=== PATIENT | male | born 1935 | race Caucasian/White ===

== ENCOUNTER 2016-08-10 16:05 | Outpatient (CLI) ==
[2016-03-12 20:23] VITALS: BMI 26.6
[2016-08-10 16:59] LABS: ADD URINE MICROSCOPIC YES; BILIRUBIN,URINE Negative (NEGATIVE); KETONES,URINE Negative (NEGATIVE); LEUKOCYTE ESTERASE ,URINE Negative (NEGATIVE); NITRITE,URINE Negative (NEGATIVE); PROTEIN,URINE Negative (NEGATIVE); URINE, BLOOD 1+ (NEGATIVE)
[2016-08-10 17:03] LABS: BASOPHILS % (AUTO) 0.4 % (0.0-3.0); EOSINOPHILS % (AUTO) 0.4 % (0.0-7.0); HEMATOCRIT 42.3 % (42.0-52.0); HEMOGLOBIN 14.4 g/dl (14.0-18.0); IMMATURE GRANULOCYTE % (AUTO) 0.4 % (0.0-5.0); LYMPHOCYTES # (AUTO) 2.2 K/uL (0.60-3.4); LYMPHOCYTES % (AUTO) 28.3 (10.0-50.0); MEAN CORPUSCULAR HEMOGLOBIN 31.6 pg (27.0-31.0); MONOCYTES # (AUTO) 0.6 K/uL (0.4-2.0); MONOCYTES % (AUTO) 7.6 (0-10); NEUTROPHILS # (AUTO) 4.9 K/ul (2.0-6.9); NEUTROPHILS % (AUTO) 62.9; PLATELET COUNT 198 10^3/uL (140-440); RED BLOOD COUNT 4.55 10^6/ul (4.70-6.10); WHITE BLOOD COUNT 7.78 K/ul (4.2-10.2)
[2016-08-10 17:20] LABS: ALBUMIN 3.9 g/dL (3.4-5.0); ALBUMIN/GLOBULIN RATIO 1.22; ANION GAP 15.8; BILIRUBIN,TOTAL 0.77 mg/dL (0.00-1.20); BUN/CREATININE RATIO 13.51; CALCIUM 10.5 mg/dL (8.2-10.2); CHOL/HDL RATIO 5.1 (4.5-6.4); CREATININE 1.11 mg/dL (0.60-1.10); POTASSIUM 3.8 mmol/L (3.5-5.1); TOTAL PROTEIN 7.1 g/dL (5.8-8.1)
[2016-08-15 08:27] LABS: FREE TESTOSTERONE 4.7 pg/mL (6.6-18.1)
== END 2016-08-10 16:06 | disposition home or self-care (01) ==
LOC: LAB 16:05
PROVIDERS: ATTEND General Practice
DX: R53.83 Other fatigue (principal); I10 Essential (primary) hypertension; R35.0 Frequency of micturition; E78.5 Hyperlipidemia, unspecified; Z12.5 Encounter for screening for malignant neoplasm of prostate
CPT/HCPCS: 36415; 80053; 80061; 81001; 84402; 85025

== ENCOUNTER 2016-11-28 16:47 | Inpatient (IN) ==
--- NOTE | 2016-11-28 17:17 | ED.PDOC ---
General ED Provider: Dr. TETE WALKER JR Chief Complaint: Dizziness Stated Complaint: patient states he quit taking his medication for 2 months and has been dizzy since. states he didn't think it was helping so he just stopped taking it. states he will take it starting tonight. [ End ]DIZZINESS FOR 2 MONTHS 99.0 65 16 97% 200/111 135#patient states he occassionally has dizziness since stopping all of his medications 2 months ago.[ End ] Time Seen by Physician: 17:17 Mode of Arrival: Walk-In Information Source: Patient Exam Limitations: No limitations [facility] T[facility] Documentation Reviewed and Agree: No Review of Systems - Review Of Systems Constitutional: Reports: Malaise Eyes: Reports: No symptoms Ears, Nose, Mouth, Throat: Reports: No symptoms Respiratory: Reports: No symptoms Cardiac: Reports: Lightheadedness (DIZZINESS DESCRIBED LIGHTHEADEDNESS UPON ARISING OCCASIONALLY SAME SENSATION WHEN NOTCHANGING POSITION) GI: Reports: No symptoms : Reports: No symptoms Musculoskeletal: Reports: No symptoms Skin: Reports: No symptoms Neurological: Reports: No symptoms Endocrine: Reports: No symptoms Hematologic/Lymphatic: Reports: No symptoms All Other Systems: Other Past Medical History - Past Medical History Endocrine: Reports: None Cardiovascular: Reports: Hypertension, A-Fib Respiratory: Reports: None Hematological: Reports: None Gastrointestinal: Reports: None Genitourinary: Reports: None Neuro/Psych: Reports: None Musculoskeletal: Reports: Arthritis Cancer: Reports: None Other Pertinent Past Medical History: GALLBLADDER HTN IRREG HB; NAMENDA LISINOPRIL AMLODIPINE - Surgical History General Surgical History: Reports: Cholecystectomy - Family History Family History: Reports: None - Social History Smoking Status: Never smoker Hx Substance Use: No Alcohol Screening: None Physical Exam - Physical Exam Appearance: Well-appearing, Thin Eyes: OSBALDO (LEFT LID DROOP FACE OTHERWISE INTACT TO TESTING), EOMI, Conjunctiva clear ENT: Ears normal, Nose normal, Oropharynx normal Neck: Supple Respiratory: Airway patent, Breath sounds clear, Breath sounds equal, Respirations nonlabored Cardiovascular: RRR, Pulses normal, No rub, No murmur GI/: Soft, Nontender, No masses, Bowel sounds normal, No Organomegaly Musculoskeletal: Normal strength, ROM intact, No edema, No calf tenderness Skin: Warm, Dry, Normal color Neurological: Sensation intact, Motor intact, Reflexes intact, Cranial nerves intact, Alert, Oriented Psychiatric: Affect appropriate, Mood appropriate Critical Care Note - Critical Care Note Total Time (mins): 0 Course - Course Orders, Labs, Meds: Orders Category Date Time Status Clonidine HCl [Catapres] MEDS 11/28/16 18:41 Stat 0.2 mg PO ONCE STA Lisinopril [Zestril] MEDS 11/28/16 17:20 Discontinued 40 mg PO ONCE STA Medications Discontinued Medications Generic Name Dose Route Start Last Admin Trade Name Dutch PRN Reason Stop Dose Admin Clonidine 0.2 mg 11/28/16 18:41 Catapres PO 11/28/16 18:42 ONCE STA Lisinopril 40 mg 11/28/16 17:20 11/28/16 17:41 Zestril PO 11/28/16 17:21 40 mg ONCE STA Administration Vital Signs: Temp Pulse Resp BP Pulse Ox 11/28/16 16:48 99.0 F 65 16 200/111 H 97 Departure - Departure Time of Disposition: 17:23 Disposition: HOME SELF-CARE Discharge Problem: Lightheadedness Hypertension Qualifiers: Hypertension type: essential hypertension Qualifier Code: (I10) Essential ( primary) hypertension Instructions: Chronic Hypertension (ED), Lightheadedness (ED) Condition: Good Pt referred to PMD for follow-up: Yes Additional Instructions: RECOMMEND TAKE MEDICATIONS PRESCRIBED stop amlodipine and use clonidine instead check blood pressure daily and write it down FOLLOW UP WITH PMD IN ONE WEEK, SOONER IF NOT IMPROVED RETURN IF CHEST PAIN, IF FEVER OVER 101.0; OR WEAKNESS ON ONE SIDE SLURRED SPEECH OR WORSENING Prescriptions: Clonidine HCl 0.1 mg PO DAILY #30 tablet Allergies/Adverse Reactions: Allergies No Known Allergies Allergy (Verified 11/28/16 16:53) Home Medications: Ambulatory Orders Clonidine HCl 0.1 mg PO DAILY #30 tablet 11/28/16 Disposition Discussed With: Patient, Family Addendum entered and electronically signed by TETE WALKER JR, MD 11/28/16 19:36: continued hypertensive discussed with Dr Shanks will recheck Addendum entered and electronically signed by ANTHONY SHANKS MD 11/28/16 21:34: Patient's blood pressure dropped to 108 systolic which was significantly lower than when he came in, Denies any dizziness at this time Per brother he has had multiple falls and gets confused due to Memory loss. Discussed with Dr Lennon who recommended CT head for completion of work up.
[2016-11-28] MEDS ORDERED: ZESTRIL PO STA (17:20)
[2016-11-28] MEDS ORDERED: CATAPRES PO STA (18:41)
[2016-11-28] MEDS ORDERED: SODIUM CHLORIDE 500 ML IV STA (20:23)
[2016-11-28 20:29] LABS: BASOPHILS % (AUTO) 0.4 % (0.0-3.0); EOSINOPHILS # (AUTO) 0.1 K/ul (0.0-0.7); EOSINOPHILS % (AUTO) 0.8 % (0.0-7.0); HEMATOCRIT 38.9 % (42.0-52.0); HEMOGLOBIN 13.3 g/dl (14.0-18.0); IMMATURE GRANULOCYTE % (AUTO) 0.1 % (0.0-5.0); LYMPHOCYTES # (AUTO) 2.1 K/uL (0.60-3.4); LYMPHOCYTES % (AUTO) 28.6 (10.0-50.0); MEAN CORPUSCULAR HEMOGLOBIN 30.6 pg (27.0-31.0); MEAN CORPUSCULAR HGB CONC 34.2 (31.8-35.4); MEAN CORPUSCULAR VOLUME 89.6 fl (80.0-94.0); MONOCYTES # (AUTO) 0.6 K/uL (0.4-2.0); MONOCYTES % (AUTO) 7.6 (0-10); NEUTROPHILS # (AUTO) 4.7 K/ul (2.0-6.9); NEUTROPHILS % (AUTO) 62.5; PLATELET COUNT 169 10^3/uL (140-440); RED BLOOD COUNT 4.34 10^6/ul (4.70-6.10); WHITE BLOOD COUNT 7.46 K/ul (4.2-10.2)
[2016-11-28 21:21] LABS: ALBUMIN 3.6 g/dL (3.4-5.0); ALBUMIN/GLOBULIN RATIO 1.38; ANION GAP 10.8; BILIRUBIN,TOTAL 0.81 mg/dL (0.00-1.20); BUN/CREATININE RATIO 16.12; CALCIUM 8.9 mg/dL (8.2-10.2); CREATININE 0.93 mg/dL (0.60-1.10); POTASSIUM 3.8 mmol/L (3.5-5.1); TOTAL PROTEIN 6.2 g/dL (5.8-8.1); TROPONIN I 0.045 ng/ml (0.0000-0.4000)
[2016-11-28 21:23] LABS: CREATINE KINASE MB 17.5 ng/ml (0.0-3.6)
[2016-11-28] MEDS ORDERED: TYLENOL PO PRN (22:19)
[2016-11-28] MEDS ORDERED: ZOFRAN 4 MG/2 ML IVP PRN (22:19)
--- NOTE | 2016-11-28 22:47 | CT ---
EXAM: CT brain without contrast HISTORY: Dizziness TECHNIQUE: CT of the brain without intravenous contrast FINDINGS: There is no acute hemorrhage midline shift or mass effect. No hydrocephalus or abnormal extra-axial fluid collection. Generalized involutional atrophy, moderate. Chronic microvascular ch anges of the white matter tracts, moderate. No acute large vessel territorial infarct is seen. The bony cranium appears normal. The visualized paranasal sinuses are clear. Soft tissues without signi ficant abnormality. IMPRESSION: 1. No acute intracranial abnormality. Chronic changes as described.
[2016-11-28] MEDS: SODIUM CHLORIDE 1,000 ML IV SCH (23:00)
[2016-11-29 00:17] VITALS: BMI 19.8
[2016-11-29 04:48] LABS: BASOPHILS % (AUTO) 0.6 % (0.0-3.0); EOSINOPHILS # (AUTO) 0.1 K/ul (0.0-0.7); EOSINOPHILS % (AUTO) 1.4 % (0.0-7.0); HEMATOCRIT 36.1 % (42.0-52.0); HEMOGLOBIN 12.3 g/dl (14.0-18.0); IMMATURE GRANULOCYTE % (AUTO) 0.6 % (0.0-5.0); LYMPHOCYTES # (AUTO) 2.5 K/uL (0.60-3.4); LYMPHOCYTES % (AUTO) 38.5 (10.0-50.0); MEAN CORPUSCULAR HEMOGLOBIN 31.1 pg (27.0-31.0); MEAN CORPUSCULAR HGB CONC 34.1 (31.8-35.4); MEAN CORPUSCULAR VOLUME 91.4 fl (80.0-94.0); MONOCYTES # (AUTO) 0.5 K/uL (0.4-2.0); MONOCYTES % (AUTO) 8.5 (0-10); NEUTROPHILS # (AUTO) 3.2 K/ul (2.0-6.9); NEUTROPHILS % (AUTO) 50.4; PLATELET COUNT 164 10^3/uL (140-440); RED BLOOD COUNT 3.95 10^6/ul (4.70-6.10); WHITE BLOOD COUNT 6.37 K/ul (4.2-10.2)
[2016-11-29 05:08] LABS: ANION GAP 8.8; BUN/CREATININE RATIO 13.86; CALCIUM 8.4 mg/dL (8.2-10.2); CREATININE 1.01 mg/dL (0.60-1.10); POTASSIUM 3.8 mmol/L (3.5-5.1)
[2016-11-29] MEDS: SODIUM CHLORIDE 1,000 ML IV SCH (05:23)
[2016-11-29 05:45] LABS: CREATINE KINASE MB 11.7 ng/ml (0.0-3.6)
[2016-11-29] MEDS: ARICEPT PO SCH (08:42)
[2016-11-29] MEDS: NAMENDA PO SCH (08:43)
[2016-11-29] MEDS: NORVASC PO SCH (08:43)
[2016-11-29] MEDS: ZESTRIL PO SCH (08:43)
[2016-11-29] MEDS: LOVENOX SUBCUT SCH (08:43)
[2016-11-29] MEDS ORDERED: NON-FORMULARY MEDICATION (Lisinopril [Lisinopril] 20 MG) PO SCH ×22 (09:00)
[2016-11-29 13:49] LABS: CREATINE KINASE MB 14.7 ng/ml (0.0-3.6)
--- NOTE | 2016-11-29 14:02 | US ---
EXAM: Ultrasound bilateral carotid duplex HISTORY: Dizziness COMPARISON: Carotid Doppler 04/14/2015 and 10/23/2014 TECHNIQUE: Sonographic and color Doppler evaluation of the carotids were performed. FINDINGS: The right carotid is patent in appearance with moderate atherosclerotic plaque visualized. The right ICA peak systolic velocity measures 70 cm/sec which is normal. The ICA / CCA peak systolic velocity ratio is 0.9 and ICA end-diastolic velocity is 10 cm/sec. The left carotid is patent in appearance with moderate atherosclerotic plaque visualized. Evaluatio n is mildly limited due to shadowing calcific atherosclerotic plaque. The left ICA peak systolic velocity measures 100 cm/sec which is the normal. The left ICA / CCA peak systolic velocity ratio is 1.1 and ICA end-diastolic velocity is 20 cm/sec. Vertebral arteries demonstrate antegrade flow bilaterally. IMPRESSION: No significant change in moderate bilateral atherosclerotic plaque with no elevated Doppler velociti es to suggest greater than 50% narrowing.
[2016-11-30 05:41] LABS: BASOPHILS % (AUTO) 0.6 % (0.0-3.0); EOSINOPHILS # (AUTO) 0.1 K/ul (0.0-0.7); EOSINOPHILS % (AUTO) 1.1 % (0.0-7.0); HEMATOCRIT 35.9 % (42.0-52.0); HEMOGLOBIN 12.2 g/dl (14.0-18.0); IMMATURE GRANULOCYTE % (AUTO) 0.2 % (0.0-5.0); LYMPHOCYTES # (AUTO) 2.1 K/uL (0.60-3.4); LYMPHOCYTES % (AUTO) 33.9 (10.0-50.0); MEAN CORPUSCULAR HEMOGLOBIN 30.7 pg (27.0-31.0); MEAN CORPUSCULAR VOLUME 90.4 fl (80.0-94.0); MONOCYTES # (AUTO) 0.5 K/uL (0.4-2.0); MONOCYTES % (AUTO) 7.8 (0-10); NEUTROPHILS # (AUTO) 3.5 K/ul (2.0-6.9); NEUTROPHILS % (AUTO) 56.4; PLATELET COUNT 152 10^3/uL (140-440); RED BLOOD COUNT 3.97 10^6/ul (4.70-6.10); WHITE BLOOD COUNT 6.16 K/ul (4.2-10.2)
[2016-11-30] MEDS: SODIUM CHLORIDE 1,000 ML IV SCH ×3 (05:52→20:00)
[2016-11-30 06:11] LABS: TESTOSTERONE 266 ng/dL (348-1197)
[2016-11-30 06:14] LABS: ANION GAP 10.9; BUN/CREATININE RATIO 16.66; CALCIUM 8.4 mg/dL (8.2-10.2); CREATININE 0.9 mg/dL (0.60-1.10); POTASSIUM 3.9 mmol/L (3.5-5.1)
[2016-11-30] MEDS: NORVASC PO SCH (08:09)
[2016-11-30] MEDS: ARICEPT PO SCH (08:09)
[2016-11-30] MEDS: NAMENDA PO SCH (08:09)
[2016-11-30] MEDS: LOVENOX SUBCUT SCH (08:09)
[2016-11-30] MEDS: ZESTRIL PO SCH (08:10)
[2016-11-30] MEDS: CATAPRES PO SCH ×2 (08:51→20:00)
[2016-11-30 09:09] LABS: TROPONIN I 0.035 ng/ml (0.0000-0.4000)
[2016-11-30 09:26] LABS: CREATINE KINASE MB 11.1 ng/ml (0.0-3.6)
--- NOTE | 2016-11-30 12:53 | PCM.CONS ---
CONSULTING PROVIDER: Dr. MONICA POLANCO ATTENDING PROVIDER: Dr. C[facility] DATE OF SERVICE: 11/30/16 SUBJECTIVE: This 81 year old WHITE/ M was hospitalized 11/28/16. The patient is admitted with hypertension, dizziness, confusion, falls and has dementia. Reason for consultation is elevation of CK-MB of 17.5. REVIEW OF SYSTEMS: (The patient is a poor historian) CONSTITUTIONAL: No night sweats. No fatigue, malaise, lethargy. No fever or chills. HEENT: Eyes: No visual changes. No eye pain. No eye discharge. ENT: No runny nose. No epistaxis. No sinus pain. No odynophagia. No congestion. RESPIRATORY: No cough, no congestion. No hemoptysis. CARDIOVASCULAR: No angina symptoms. No CHF symptoms. No atypical chest pain for CAD. No palpitations. No shortness of breath. GASTROINTESTINAL: No abdominal pain. No nausea or vomiting. No diarrhea or constipation. No hematemesis. No hematochezia. GENITOURINARY: No urgency. No frequency. No dysuria. No hematuria. No obstructive symptoms. No discharge. No pain. No significant abnormal bleeding. MUSCULOSKELETAL: No musculoskeletal pain; no joint swelling. NEUROLOGICAL: Awake, alert, confused. Dizziness. No headache. No neck pain. No syncope. No seizures. PSYCHIATRIC: Not anxious. No depression. No suicidal thoughts. No homicidal thoughts. SKIN: No rash. No lesions. No wounds. ENDOCRINE: No unexplained weight loss. No weight gain. HEMATOLOGIC/LYMPHATIC: No anemia. No purpura. No petechiae. No prolonged or excessive bleeding. No palpable lymph nodes. PHYSICAL EXAMINATION: GENERAL: The patient is awake, alert and confused lying in bed in no distress. VITAL SIGNS: Temperature 97.6 F, Pulse 62, Respiratory Rate 20, BP 184/94, Pulse Ox 94% HEENT: Head normocephalic, atraumatic. Eyes: Extraocular muscles are intact. Pupils are equal, round and reactive to light and accommodation. Ears: No lesions. Nose appeared normal. Throat: No exudate or erythema. NECK: Supple. No JVD, no carotid bruit. No lymphadenopathy or thyromegaly. LUNGS: Clear to auscultation. Percussion note normal. Chest symmetrical. HEART: S1, S2, no S3. Grade II/ systolic murmur going to the axilla. No cyanosis or clubbing. No ascites. Pulses: Dorsalis pedis and posterior tibial pulses +1 bilaterally. ABDOMEN: Soft. Non-tender. Bowel sounds active. No CVA tenderness. No mass felt. EXTREMITIES: No edema. Full range of motion of all extremities, equal. NEUROLOGIC: No focal deficit. Cranial nerves II through XII are grossly intact. No headache, no double vision or headache. SKIN: Not dry. Intact. Turgor-normal. LYMPHATIC: No palpable lymph nodes/no lymphedema. MUSCULOSKELETAL: Normal joints with no swelling. Muscle tone is normal. LAB REVIEW: 11/30/16 05:15 11/30/16 05:15 11/30/16 05:15: WBC 6.16, RBC 3.97 L, Hgb 12.2 L, Hct 35.9 L, MCV 90.4, MCH 30.7 , MCHC 34.0, RDW Coeff of Dennys 12.7, Plt Count 152, Immature Gran % (Auto) 0.2, Neut % (Auto) 56.4, Lymph % (Auto) 33.9, [place] % (Auto) 7.8, Eos % (Auto) 1.1, Baso % (Auto) 0.6, Immature Gran # (Auto) 0.0, Neut # 3.5, Lymph # 2.1, [place] # 0.5, Eos # 0.1, Baso # 0.0, Sodium 141, Potassium 3.9, Chloride 112 H, Carbon Dioxide 22 L, Anion Gap 10.9, BUN 15, Creatinine 0.90, Estimated GFR (MDRD) 81.00, BUN/Creatinine Ratio 16.66, Glucose 94, Calcium 8.4 11/29/16 17:35: Troponin I 0.0220 11/29/16 12:35: Total Creatine Kinase 589, CK-MB (CK-2) 14.7 H*, CK-MB (CK-2) % 2.82419 11/29/16 11:07: Vitamin B12 171 L 11/29/16 04:30: Total Testosterone 266 L, Testosterone Comment Comment ASSESSMENT: 1. Elevation of CK-MB, etiology seems likely noncardiac, could be musculoskeletal from falls that patient does not recollect. 2. Dementia. 3. Hypertension. 4. Noncompliance. RECOMMENDATIONS/PLAN: 1. Clondiine 0.1 b.i.d. one now 2. Continue Aricept 3. Echocardiogram to evaluate LV function and valvular structure 4. Continue telemetry and CK with EKGs Plan and coordination of the patient's care discussed in the presence of Mixed Crop Farmer and Nurse. CONDITION: Stable SCRIBED BY: PALMER SPRINGER Proof Sorter scribed while in presence of service performed by Dr. MONICA POLANCO on 11/30/16 ([id number])
[2016-12-01 06:44] LABS: BASOPHILS % (AUTO) 0.3 % (0.0-3.0); EOSINOPHILS # (AUTO) 0.1 K/ul (0.0-0.7); EOSINOPHILS % (AUTO) 0.9 % (0.0-7.0); HEMATOCRIT 38.9 % (42.0-52.0); HEMOGLOBIN 13.2 g/dl (14.0-18.0); IMMATURE GRANULOCYTE % (AUTO) 0.3 % (0.0-5.0); LYMPHOCYTES # (AUTO) 1.9 K/uL (0.60-3.4); LYMPHOCYTES % (AUTO) 32.8 (10.0-50.0); MEAN CORPUSCULAR HEMOGLOBIN 30.7 pg (27.0-31.0); MEAN CORPUSCULAR HGB CONC 33.9 (31.8-35.4); MEAN CORPUSCULAR VOLUME 90.5 fl (80.0-94.0); MONOCYTES # (AUTO) 0.5 K/uL (0.4-2.0); MONOCYTES % (AUTO) 8.2 (0-10); NEUTROPHILS # (AUTO) 3.4 K/ul (2.0-6.9); NEUTROPHILS % (AUTO) 57.5; PLATELET COUNT 161 10^3/uL (140-440); WHITE BLOOD COUNT 5.88 K/ul (4.2-10.2)
[2016-12-01 07:00] LABS: ANION GAP 10.7; BUN/CREATININE RATIO 12.9; CALCIUM 8.8 mg/dL (8.2-10.2); CREATININE 0.93 mg/dL (0.60-1.10); POTASSIUM 3.7 mmol/L (3.5-5.1)
[2016-12-01] MEDS: NORVASC PO SCH (08:32)
[2016-12-01] MEDS: CATAPRES PO SCH (08:32)
[2016-12-01] MEDS: ARICEPT PO SCH (08:32)
[2016-12-01] MEDS: NAMENDA PO SCH (08:32)
[2016-12-01] MEDS: ZESTRIL PO SCH (08:32)
[2016-12-01] MEDS: LOVENOX SUBCUT SCH (08:33)
--- NOTE | 2016-12-01 08:35 | PCM.CONS ---
CONSULTING PROVIDER: Dr. MONICA POLANCO ATTENDING PROVIDER: Dr. C[facility]ES [facility] DATE OF SERVICE: 12/01/16 SUBJECTIVE: This 81 year old WHITE/ M was hospitalized 11/28/16. The patient is hospitalized with hypertension, dizziness and confusion. The patient has elevated CK with Positive MB fraction on a consistent basis likely musculoskeletal or other source. No CHF or coronary insufficiency. The patient has a systolic murmur, will evaluate. He has dementia, has been up and about. This morning he is confused and sleepy. REVIEW OF SYSTEMS: CONSTITUTIONAL: No night sweats. No fatigue, malaise, lethargy. No fever or chills. HEENT: Eyes: No visual changes. No eye pain. No eye discharge. ENT: No runny nose. No epistaxis. No sinus pain. No odynophagia. No congestion. RESPIRATORY: No cough, no congestion. No hemoptysis. CARDIOVASCULAR: No angina symptoms. No CHF symptoms. No atypical chest pain for CAD. No palpitations. No shortness of breath. GASTROINTESTINAL: No abdominal pain. No nausea or vomiting. No diarrhea or constipation. No hematemesis. No hematochezia. GENITOURINARY: No urgency. No frequency. No dysuria. No hematuria. No obstructive symptoms. No discharge. No pain. No significant abnormal bleeding. MUSCULOSKELETAL: No musculoskeletal pain; no joint swelling. NEUROLOGICAL: Awake but somewhat drowsy, confused. No headache. No neck pain. No syncope. No seizures. No dizziness. PSYCHIATRIC: Not anxious. No depression. No suicidal thoughts. No homicidal thoughts. SKIN: No rash. No lesions. No wounds. ENDOCRINE: No unexplained weight loss. No weight gain. HEMATOLOGIC/LYMPHATIC: No anemia. No purpura. No petechiae. No prolonged or excessive bleeding. No palpable lymph nodes. PHYSICAL EXAMINATION: GENERAL: The patient is drowsy, confused lying in bed in no distress. VITAL SIGNS: Temperature 97.0 F, Pulse 69, Respiratory Rate 16, BP 172/81, Pulse Ox 98% HEENT: Head normocephalic, atraumatic. Eyes: Extraocular muscles are intact. Pupils are equal, round and reactive to light and accommodation. Ears: No lesions. Nose appeared normal. Throat: No exudate or erythema. NECK: Supple. No JVD, no carotid bruit. No lymphadenopathy or thyromegaly. LUNGS: Clear to auscultation. Percussion note normal. Chest symmetrical. HEART: S1, S2, no S3. Systolic murmur Grade II/ soft going to the axilla. No cyanosis or clubbing. No ascites. Pulses: Dorsalis pedis and posterior tibial pulses +1 to +2 both sides. ABDOMEN: Soft. Non-tender. Bowel sounds active. No CVA tenderness. No mass felt. EXTREMITIES: No edema. Full range of motion of all extremities, equal. NEUROLOGIC: No focal deficit. Cranial nerves II through XII are grossly intact. No headache, no double vision or headache. SKIN: Not dry. Intact. Turgor-normal. LYMPHATIC: No palpable lymph nodes/no lymphedema. MUSCULOSKELETAL: Normal joints with no swelling. Muscle tone is normal. LAB REVIEW: 12/01/16 06:30 12/01/16 06:30 12/01/16 06:30: WBC 5.88, RBC 4.30 L, Hgb 13.2 L, Hct 38.9 L, MCV 90.5, MCH 30.7 , MCHC 33.9, RDW Coeff of Dennys 12.7, Plt Count 161, Immature Gran % (Auto) 0.3, Neut % (Auto) 57.5, Lymph % (Auto) 32.8, [place] % (Auto) 8.2, Eos % (Auto) 0.9, Baso % (Auto) 0.3, Immature Gran # (Auto) 0.0, Neut # 3.4, Lymph # 1.9, [place] # 0.5, Eos # 0.1, Baso # 0.0, Sodium 141, Potassium 3.7, Chloride 112 H, Carbon Dioxide 22 L, Anion Gap 10.7, BUN 12, Creatinine 0.93, Estimated GFR (MDRD) 78.00, BUN/Creatinine Ratio 12.90, Glucose 94, Calcium 8.8 11/30/16 05:10: Total Creatine Kinase 460, CK-MB (CK-2) 11.1 H*, CK-MB (CK-2) % 2.52094, Troponin I 0.0350 11/29/16 04:30: Total Testosterone 266 L, Testosterone Comment Comment ASSESSMENT: 1. Persistent CK elevation noncardiac clinically. 2. No evidence of acute myocardial event. RECOMMENDATIONS/PLAN: 1. Will do echo to evaluate LV function and valvular structures. 2. Agree with the present illness. 3. Repeat CK-MB. Thank you for the referral, will follow. Plan and coordination of the patient's care discussed in the presence of Personnel Arbitrator and Nurse. CONDITION: Stable SCRIBED BY: PALMER SPRINGER, History Department Chair scribed while in presence of service performed by Dr. MONICA POLANCO on 12/01/16 ([id number])
[2016-12-01 10:44] VITALS: BP 150/82; TEMP 97.1
--- NOTE | 2016-12-04 13:36 | ECHO2D ---
Date of Exam: 12/01/16 [facility] Reason for Echo: EVALUATE LV FUNCTION, CKMB ELEVATED M-Mode Normal Adult Results LV Dimensions Normal Adult Results AoV Opening excursions >1.6 1.4 LVEDD-base- 3.5-5.8 3.5 Ao root dimensions 2.0-3.7 3.1 LVESD-base- 3.1-4.6 L. Atrium dimensions 1.9-3.8 4.7 Post. Wall thickness 0.8-1.1 0.9 IV septum (thickness) 0.7-1.2 1.1 Post. Wall excursion 0.72-1.3 NORMAL Septal motion NORMAL Systolic motion R. Ventricular cavity 1.5-2.0 NORMAL LVEF 60% 66% Paradoxical septal wall motion NORMAL 2-D : CALCIFIC AORTIC VALVES--MAYBE AORTIC STENOSIS MILD TO MODERATE, NORMAL LEFT VENTRICULAR CONTRACTILITY--ENLARGED LEFT ATRIAL CAVITY, NORMAL LEFT VENTRICLE CAVITY M-MODE: MV: NORMAL AV: CALCIFIC AORTIC VALVES--MILD TO MODERATE AORTIC STENOSIS, VALVE AREA 1.45 CM2 TV: NORMAL PV: NORMAL CHAMBER SIZE: ENLARGED LEFT ATRIAL CAVITY WALL MOTION: NORMAL PERICARDIUM: NORMAL INTERPRETATION: 1. ENLARGED LEFT ATRIAL CAVITY 2. NORMAL LEFT VENTRICULAR CONTRACTILITY 3. CALCIFIC AORTIC STENOSIS MILD TO MODERATE MTDD
--- NOTE | 2016-12-06 11:52 | HP ---
CHIEF COMPLAINT: Dizziness SOURCE OF HISTORY: The patient as well as records at the emergency room. HISTORY OF PRESENT ILLNESS: The patient claimed to have stopped the medications as maybe it was not working about two months ago and claimed that since then he had experienced some dizziness but no syncopal episode. He denies any headaches or any visual disturbances. He presented himself to the emergency room and was found to have a blood pressure of 200/111. He was given Clonidine 0.2 mg p.o. plus Lisinopril 40 mg. The patient, while in the emergency room, was noted to have a markedly decreased blood pressure 109 systolic from 200. He was then given intravenous fluids. Because of the dizziness, the patient had CT scan of the head showing acute intracranial injuries. This patient was then admitted for further observation because of the hypertension and now hypotension after medication. PAST PERSONAL HISTORY: The patient is noted to be hypertensive with some irregular heartbeat. He had a previous cholecystectomy. He had cerebrovascular accident 2 years ago with good recovery, cataract surgery and again a mini stroke in 2012. He claimed to have had cardiac arrest with anesthestia and a cardiac catheterization, appendectomy and hernia repair, atrial fibrillation. FAMILY HISTORY: Father had irregular heartbeat, brother had prostatic carcinoma, mother had lung cancer and one younger brother has senile dementia. SOCIAL HISTORY: The patient is single and resides alone. He does have grown children. He never did smoke. He denies any alcohol use now. MEDICATIONS: (prior to this admission) 1. Namenda 10 mg tablet daily 2. Aricept 10 mg tablet daily 3. Amlodipine 5 mg daily 4. Lisinopril 20 mg daily This patient had however discontinued these medications two months ago. ALLERGIES: NKDA REVIEW OF SYSTEMS: CONSTITUTIONAL: No fever, no chills but has some fatigue. BUSINESS OPERATIONS COORDINATOR: The patient has dizziness but no syncopal episode or seizure disorder. VISUAL: No blurred vision, no double vision or transient loss of vision. AUDITORY: Hearing is somewhat decreased but no tinnitus. No pain or drainage. This patient does have some dizziness. RESPIRATORY: No cough. No history of hemoptysis. CARDIOVASCULAR: Denies any chest pain or chest tightness. GASTROINTESTINAL: Appetite is okay. No dysphagia. No diarrhea. No abdominal pain. GENITOURINARY: The patient denies any dysuria or urgency. The patient has some incontinence at times. INTEGUMENT: Denies any rash or pruritus. MUSCULOSKELETAL: The patient does have multiple joint pains but not on any medication and tolerable. ENDOCRINE: Negative. HEMATOLOGY: No history of prolonged bleeding. PSYCHIATRIC: The patient's affect appeared to be okay but has very poor recollection of recent events, is very forgetful. PHYSICAL EXAMINATION: GENERAL: 82-year-old male is alert, oriented times three. The patient sometimes has problems with situation. VITAL SIGNS: Temperature 99.0, pulse 65, BP 200/111 and did go up to 209/103, 211/95. Respiratory rate 16, oxygen saturation 97 on room air. Height 5'8", 135 lbs. He was listed to be 123 and I am not sure which one is correct. The scale in the emergency room as well as the scale on the floor does not coincide. HEAD: Unremarkable. EYES: Pupils equal/reactive to light. Conjunctivae not pale. Sclerae not icteric. Face is symmetrical and equal. No facial weakness. No significant tenderness in the frontomaxillary sinus areas to palpation and/or pressure. MOUTH: Unremarkable. THROAT: No inflammation, tumors or exudate. NECK: No masses. No bruit. No tenderness. CHEST: Symmetrical and equal with good expansion. LUNGS: Breath sounds are heard on both sides, somewhat diminished but no rales or wheezing. HEART: Audible, slightly irregular with good tones. ABDOMEN: Slightly soft with no remarkable tenderness. No guarding. Bowel sounds active. No masses palpable. EXTERNAL GENITALIA: Not examined. RECTAL: Not performed. LOWER EXTREMITIES: Symmetrical and equal with no significant edema. UPPER EXTREMITIES: Symmetrical and equal. ASSESSMENT: 1. HYPERTENSION, UNCONTROLLED. 2. DIZZINESS. 3. SENILE DEMENTIA. 4. HISTORY OF CVA. MTDD
--- NOTE | 2016-12-08 10:09 | DS ---
PATIENT IDENTIFICATION: 81 year old male who presented to the emergency room because of lightheadedness. He stopped his medications since about two months ago and claimed to have had dizziness since. He stopped the medication since he believed that it was not helping him. The patient while in the emergency room was given Clonidine, since his blood pressure was 200/111. Clonidine was 0.2 mg p.o. with Lisinopril 40 mg. His blood pressure dropped to 108 systolic. The patient had multiple episodes of fall according to his brother. The patient had a CT in the emergency room which showed no acute intracranial processes. IV fluids plus electrolyte replacement was done because of the hypertension prior to admission. HOSPITAL COURSE: The patient had the following workup during this hospitalization of CBC times four showing moderate anemia with normal WBC and normal platelet count. Chemistry showed slightly elevated chlorides, but not clinically significant. The CKMB was elevated on admission at 17.5. Troponin was normal. B1, B2 and B12 were measured and B1 and B2 were within normal limits and the B12 is below normal of 171 pg per ml. Normal 213-816. 25 Hydroxy Vitamin D level is normal at 59.2. Vitamin E normal at 8.2 mg per liter. Total testosterone below normal at 266, range 348 to 1,197 nanogram per deciliter. PSA normal at 2.3. The patient's CKMB was decreasing and did come down to 11.1 on 11/30/2016. The patient had not had any chest pain and no shortness of breath. He was seen by Dr. Patricio, Machine Setter Sheet Metal and felt that the CKMB elevation is noncardiac in origin. The patient wanted to go home on and I did talk to his brother, Dustin Nix, and did recount about his presenting to the emergency room and the course that he had in the hospital. I did tell his brother that someone has to check his medications since he had not been taking his medication that led him to come to the emergency room because of the dizziness. The patient at the time of discharge was alert, ambulatory, responsive verbally and also followed verbal commands. VITAL SIGNS: Upon discharge showed a temperature 97.1, pulse 63, blood pressure 150/82, respiratory rate 20, oxygen saturation 98 at room air. LUNGS: Clear to auscultation. HEART: Audible and regular with good tones. CT scan of the head showed no acute intracranial abnormalities done on 11/28/16 , emergency room. Carotid ultrasound because of the dizziness showed no significant change in the moderate bilateral atherosclerotic block with no elevated Doppler velocities to suggest greater than 50% narrowing. FINAL DIAGNOSES: 1. HYPERTENSION, UNCONTROLLED 2. NONCOMPLIANCE 3. SENILE DEMENTIA 4. 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 5. LOW SERUM TESTOSTERONE LEVEL PLAN: 1. See me in one week at the office and before if there is any problems. 2. Resume previous medications of Amlodipine 5 mg daily, Lisinopril 20 mg daily , Namenda 10 mg daily and Donepezil 10 mg daily. 3. I will discuss with him with his brother with regards to testosterone replacement and see if this would improve his general condition. ELKE
--- NOTE | 2016-12-19 14:08 | CONS ---
DATE OF CONSULTATION: 11/30/16 REASON FOR CONSULTATION: Elevated CK-MB, admitted 11/28/16 HISTORY OF PRESENT ILLNESS: This is an 81-year-old male who presented to the ER with reports of dizziness, intermittent for approximately 2 months. The patient also reported confusion and falls. The patient stopped taking his medications about two months ago because he felt they weren't helping. REVIEW OF SYSTEMS: CONSTITUTIONAL: No night sweats. No fatigue, malaise, lethargy. No fever or chills. HEENT: Eyes: No visual changes. No eye pain. No eye discharge. ENT: No runny nose. No epistaxis. No sinus pain. No sore throat. No odynophagia. No ear pain. No congestion. RESPIRATORY: No cough, no congestion. No hemoptysis. CARDIOVASCULAR: No angina symptoms. No CHF symptoms. No atypical chest pain for CAD. No palpitations. No shortness of breath. GASTROINTESTINAL: No abdominal pain. No nausea or vomiting. No diarrhea or constipation. No hematemesis. No hematochezia. GENITOURINARY: No urgency. No frequency. No dysuria. No hematuria. No obstructive symptoms. No discharge. No pain. No significant abnormal bleeding. MUSCULOSKELETAL: No musculoskeletal pain. No joint swelling. Falls reported by his brother as recent as 2 weeks go. NEUROLOGICAL: No blackout. Dizziness intermittently for 2 months. No headache. No neck pain. No syncope. No seizures. PSYCHIATRIC: Not anxious. No depression. No suicidal thoughts. No homicidal thoughts. SKIN: Warm, dry with thin skin. ENDOCRINE: Weight loss; no amount given, weight 133 in April of 2015. HEMATOLOGIC/LYMPHATIC: No anemia. No purpura. No petechiae. No prolonged or excessive bleeding. No palpable lymph nodes. MEDICATIONS: 1. Amlodipine 2. Aricept 3. Lisinopril *The patient stopped Namenda and Clonidine approximately 2 months ago. ALLERGIES: NKDA PAST MEDICAL/SURGICAL HISTORY: 1. Dementia 2. Hypertension 3. Mini stroke 2012 4. GERD 5. Cholecystectomy 6. Appendectomy 7. Noncompliance SOCIAL/PERSONAL/FAMILY HISTORY: Nonsmoker. Alcohol: Few beers occasionally. . Family History: Mother lung cancer; father cardiac arrhythmia; sibling cancer. PHYSICAL EXAMINATION: VITAL SIGNS: Pulse 62, BP 184/94, temperature 97.6, 02 sat 94% on room air. Weight 123 pounds. GENERAL: The patient is oriented to person, not to date or year. HEENT: Head normocephalic, atraumatic. Eyes: Extraocular muscles are intact. Pupils are equal, round and reactive to light and accommodation. Ears: No lesions. Nose appeared normal. Throat: No exudate or erythema. NECK: Supple. No JVP, no carotid bruit. No lymphadenopathy or thyromegaly. LUNGS: Clear to auscultation. Percussion note normal. Chest symmetrical. HEART: S1, S2. Systolic murmur Grade II/ to the axilla. No cyanosis or clubbing. No ascites. Pulses: Dorsalis pedis and posterior tibial pulses +1 both sides. ABDOMEN: Soft. Nontender. Bowel sounds active. No CVA tenderness. No mass felt. EXTREMITIES: No edema. Full range of motion of all extremities, equal. NEUROLOGIC: No focal deficit. Cranial nerves II through XII are grossly intact. No headache, no double vision or headache. SKIN: Not dry. Intact. Turgor - normal. LYMPHATIC: No palpable lymph nodes/no lymphedema. MUSCULOSKELETAL: Normal joints with no swelling. Muscle tone is normal. ASSESSMENT: 1. Positive for CK-MB 2. Systolic ejection murmur 3. Dementia - poor historian 4. Hypertension LABS/X-RAYS/INVESTIGATIONS/INTERIM RELEVANT DATA: Carotid scan reveals no significant change in moderate bilateral atherosclerotic plaque to suggest greater than 50% stenosis. #1 CK 847, MB 17.5 , Trop 0.0450; #2 CPK 500, CK-MB 11.7; #3 CPK 589, CKMB 14.7, troponin 0.0220. WBC within normal limits. BUN and creatinine within normal limits. PLAN/RECOMMENDATIONS: 1. Clonidine 0.1 mg b.i.d. 2. EKG this a.m. 3. Repeat cardiac markers 4. Echocardiogram to evaluate LV function and valves The case is discussed with the attending. Thanks for the referral. Will follow. Of note: The patient was hospitalized in April of 2015 with increasing weakness and confusion. CPK, CKMB elevated at that time. MTDD
== END 2016-12-01 13:45 | disposition home or self-care (01) | DRG 149 ==
LOC: ED 16:47 → SCU 22:14 → MEDSURG B 11-30 23:00
PROVIDERS: ADMIT General Practice; ATTEND General Practice
DX: R42 Dizziness and giddiness (principal); I10 Essential (primary) hypertension; R74.8 Abnormal levels of other serum enzymes; I51.7 Cardiomegaly; I95.9 Hypotension, unspecified; F03.90 Unspecified dementia, unspecified severity, without behavioral disturbance, psychotic disturbance, mood disturbance, and anxiety; E29.1 Testicular hypofunction; R01.1 Cardiac murmur, unspecified; D64.9 Anemia, unspecified; R29.810 Facial weakness; Z91.128 Patient's intentional underdosing of medication regimen for other reason; Z91.81 History of falling; Z86.73 Personal history of transient ischemic attack (TIA), and cerebral infarction without residual deficits; Z79.899 Other long term (current) drug therapy
CPT/HCPCS: 36415; 80048; 80053; 82550; 82553; 82607; 82652; 84403; 84425; 84484; 84590; 85025; 93005; 93010; 96360; 96361; 99284; 99285

== ENCOUNTER 2016-12-08 15:23 | Outpatient (CLI) ==
[2016-12-08] MEDS: NON-FORMULARY MEDICATION IM ONE ×22 (15:42)
== END 2016-12-08 15:24 | disposition home or self-care (01) ==
LOC: OUTPT 15:23
PROVIDERS: ATTEND General Practice
DX: E29.1 Testicular hypofunction (principal)
CPT/HCPCS: 96372

== ENCOUNTER 2016-12-15 13:28 | Outpatient (CLI) | payer OTHER ==
[2016-12-15] MEDS ORDERED: NON-FORMULARY MEDICATION IM SCH ×22 (13:45)
== END 2016-12-15 13:29 | disposition home or self-care (01) ==
LOC: OUTPT 13:28
PROVIDERS: ATTEND General Practice
DX: E29.1 Testicular hypofunction (principal)
CPT/HCPCS: 96372

== ENCOUNTER 2016-12-22 15:25 | Outpatient (CLI) | payer OTHER ==
[2016-12-29] MEDS ORDERED: NON-FORMULARY MEDICATION IM SCH ×22 (09:00)
[2016-12-29] MEDS ORDERED: NON-FORMULARY MEDICATION IM ONE ×22 (15:38)
== END 2016-12-22 15:26 | disposition home or self-care (01) ==
LOC: OPMED 15:25
PROVIDERS: ATTEND General Practice
DX: E29.1 Testicular hypofunction (principal)
CPT/HCPCS: 96372

== ENCOUNTER 2017-01-02 09:39 | Outpatient (CLI) ==
[2017-01-02] MEDS ORDERED: NON-FORMULARY MEDICATION IM ONE ×22 (09:55)
[2017-01-02 09:59] VITALS: BP 120/58; TEMP 97.9
== END 2017-01-02 09:40 | disposition home or self-care (01) ==
LOC: OPMED 09:39
PROVIDERS: ATTEND General Practice
DX: E29.1 Testicular hypofunction (principal)
CPT/HCPCS: 96372

== ENCOUNTER 2017-01-15 11:28 | Outpatient (CLI) | payer OTHER ==
[2017-01-15] MEDS ORDERED: NON-FORMULARY MEDICATION IM ONE ×22 (11:55)
== END 2017-01-15 11:29 | disposition home or self-care (01) ==
LOC: OPMED 11:28
PROVIDERS: ATTEND General Practice
DX: E29.1 Testicular hypofunction (principal)
CPT/HCPCS: 96372

== ENCOUNTER 2017-01-26 10:03 | Outpatient (CLI) ==
[2017-01-26] MEDS: NON-FORMULARY MEDICATION IM ONE ×22 (10:43)
[2017-01-26 11:30] VITALS: BP 160/76; TEMP 97
== END 2017-01-26 10:04 | disposition home or self-care (01) ==
LOC: OPMED 10:03
PROVIDERS: ATTEND General Practice
DX: E29.1 Testicular hypofunction (principal)
CPT/HCPCS: 96372

== ENCOUNTER 2017-02-02 14:37 | Outpatient (CLI) ==
[2017-02-02 14:47] VITALS: BP 179/84; TEMP 98.6
[2017-02-02] MEDS ORDERED: NON-FORMULARY MEDICATION IM ONE ×22 (14:52)
== END 2017-02-02 14:38 | disposition home or self-care (01) ==
LOC: OPMED 14:37
PROVIDERS: ATTEND General Practice
DX: E29.1 Testicular hypofunction (principal)
CPT/HCPCS: 96372

== ENCOUNTER 2017-02-08 13:23 | Outpatient (CLI) ==
[2017-02-08 13:36] LABS: BASOPHILS # (AUTO) 0.1 K/uL (0-0.2); BASOPHILS % (AUTO) 0.5 % (0.0-3.0); EOSINOPHILS # (AUTO) 0.1 K/ul (0.0-0.7); EOSINOPHILS % (AUTO) 1.2 % (0.0-7.0); HEMATOCRIT 44.4 % (42.0-52.0); HEMOGLOBIN 14.6 g/dl (14.0-18.0); IMMATURE GRANULOCYTE % (AUTO) 0.3 % (0.0-5.0); LYMPHOCYTES # (AUTO) 2.6 K/uL (0.60-3.4); LYMPHOCYTES % (AUTO) 27.3 (10.0-50.0); MEAN CORPUSCULAR HEMOGLOBIN 29.4 pg (27.0-31.0); MEAN CORPUSCULAR HGB CONC 32.9 (31.8-35.4); MEAN CORPUSCULAR VOLUME 89.3 fl (80.0-94.0); MONOCYTES # (AUTO) 0.8 K/uL (0.4-2.0); MONOCYTES % (AUTO) 8.8 (0-10); NEUTROPHILS # (AUTO) 5.9 K/ul (2.0-6.9); NEUTROPHILS % (AUTO) 61.9; PLATELET COUNT 194 10^3/uL (140-440); RED BLOOD COUNT 4.97 10^6/ul (4.70-6.10)
[2017-02-08 14:46] LABS: ALBUMIN 3.8 g/dL (3.4-5.0); ALBUMIN/GLOBULIN RATIO 1.27; BILIRUBIN,TOTAL 0.67 mg/dL (0.00-1.20); BUN/CREATININE RATIO 13.33; CALCIUM 9.1 mg/dL (8.2-10.2); CHOL/HDL RATIO 6.3 (4.5-6.4); CREATININE 1.05 mg/dL (0.60-1.10); TOTAL PROTEIN 6.8 g/dL (5.8-8.1)
[2017-02-09 13:04] LABS: PROSTATE SPECIFIC AG, FREE 0.96 ng/mL
[2017-02-10 09:01] LABS: FREE TESTOSTERONE 46.3 pg/mL (6.6-18.1)
== END 2017-02-08 13:24 | disposition home or self-care (01) ==
LOC: LAB 13:23
PROVIDERS: ATTEND General Practice
DX: I48.91 Unspecified atrial fibrillation (principal); D64.9 Anemia, unspecified; I25.10 Atherosclerotic heart disease of native coronary artery without angina pectoris; E29.1 Testicular hypofunction; R53.83 Other fatigue; R35.0 Frequency of micturition; E78.5 Hyperlipidemia, unspecified
CPT/HCPCS: 36415; 80053; 80061; 84154; 84402; 84443; 85025

== ENCOUNTER 2017-02-09 13:43 | Outpatient (CLI) ==
[2017-02-09 14:17] VITALS: BP 160/76; TEMP 99
[2017-02-09] MEDS ORDERED: NON-FORMULARY MEDICATION IM STA ×22 (14:20)
== END 2017-02-09 13:44 | disposition home or self-care (01) ==
LOC: OPMED 13:43
PROVIDERS: ATTEND General Practice
DX: I48.91 Unspecified atrial fibrillation (principal); E29.1 Testicular hypofunction; I10 Essential (primary) hypertension
CPT/HCPCS: 93005; 93010; 96372

== ENCOUNTER 2017-04-26 16:26 | Outpatient (CLI) ==
--- NOTE | 2017-04-26 17:05 | DI ---
Exam: Chest two-view. HISTORY: Other abnormalities of breathing. Comparison: 03/09/2015. Findings: Two images of the chest demonstrate mild expanded lungs with blunting of the costophrenic angles. There is minimal alveolar opacity at the left lung base. There is no pneumothorax. The pul monary vasculature does not appear edematous. The cardiac silhouette is within normal limits of size . The thoracic aorta is partially calcified. Degenerative findings are noted in the spine. Impressions: Small bilateral pleural effusions. Minimal left base atelectasis or pneumonia. Atherosclerosis.
== END 2017-04-26 16:27 | disposition home or self-care (01) ==
LOC: CAR 16:26
PROVIDERS: ATTEND General Practice
DX: I48.91 Unspecified atrial fibrillation (principal); R06.89 Other abnormalities of breathing
CPT/HCPCS: 93005; 93010

== ENCOUNTER 2017-05-08 11:35 | Emergency (ER) ==
[2017-05-08 11:45] VITALS: BP 157/106; TEMP 98.2; BMI 23.3
--- NOTE | 2017-05-08 13:19 | ED.PDOC ---
General ED Provider: Dr. NILAM VELIZ Chief Complaint: Weakness Stated Complaint: Per brother, weakness and no appetite x 1 week. Per patient, running a fever but not check it. Time Seen by Physician: 13:11 Mode of Arrival: Wheelchair Information Source: Patient, Family Exam Limitations: No limitations [facility] Nursing and Triage Documentation Reviewed and Agree: Yes Miscellaneous Complaint Exam - Complex/Multi-System Complaint/Exam Onset/Duration: one week Symptoms Are: Still present Episodes Lasting: Days Initial Severity: Mild Current Severity: Moderate Location of Pain: left chest wall soreness from fall several weeks ago Character: aching Associated Signs and Symptoms: Reports: Abdominal pain (occasional right and left inguinal pain - none currently), Recent trauma (fell on left side onto floor about 3 weeks ago. No head injury and no LOC.) Recent Echo/LV Function: No Respiratory Distress: None JVD Present: No Tachypnea Present: No Stridor Present: No Abdominal Findings: Present: Normal findings Meningeal Signs Positive: No Focal Weakness: Present: None Focal Sensory Loss: Present: None Gait: Normal Gag Reflex Present: Yes Babinski Sign: Negative Right, Negative Left Skin Findings: Present: Normal findings Joint Swelling Present: No In-Dwelling Device Present: No Differential Diagnosis: Cardiac Ischemia, UTI, Other (viral syndrome) Review of Systems - Review Of Systems Constitutional: Reports: Weakness Eyes: Reports: No symptoms Ears, Nose, Mouth, Throat: Reports: No symptoms Respiratory: Reports: No symptoms Cardiac: Reports: No symptoms, Irregular heart rate (intermittently x years) GI: Reports: No symptoms : Reports: No symptoms Musculoskeletal: Reports: Muscle pain (left chest wall since fall 3 weeks ago) Skin: Reports: No symptoms Neurological: Reports: No symptoms All Other Systems: Reviewed and Negative Past Medical History - Past Medical History Previously Healthy: Yes Endocrine: Reports: None Cardiovascular: Reports: Hypertension, A-Fib Respiratory: Reports: None Hematological: Reports: None Gastrointestinal: Reports: None Genitourinary: Reports: None Neuro/Psych: Reports: None Musculoskeletal: Reports: Arthritis Cancer: Reports: None Other Pertinent Past Medical History: GALLBLADDER HTN IRREG HB; NAMENDA LISINOPRIL AMLODIPINE - Surgical History General Surgical History: Reports: Cholecystectomy - Family History Family History: Reports: None - Social History Smoking Status: Former smoker (quit x 7 years) Hx Substance Use: No Alcohol Screening: None Lives: Alone - Immunizations Tetanus Shot up to Date: Yes Influenza Vaccine within 12 Months: Yes Pneumococcal Vaccine up to Date: Yes Physical Exam - Physical Exam Appearance: Ill-appearing, Well-nourished Ill-appearing: Moderate Pain Distress: None ENT: Ears normal, Nose normal, Oropharynx normal Neck: Supple Respiratory: Airway patent, Breath sounds clear, Breath sounds equal, Respirations nonlabored Cardiovascular: RRR, Pulses normal, No rub, No murmur GI/: Soft, Nontender, No masses, Bowel sounds normal, No Organomegaly Musculoskeletal: ROM intact, No edema, No calf tenderness, Limited strength Skin: Warm, Dry, Normal color Neurological: Sensation intact, Motor intact, Reflexes intact, Cranial nerves intact, Alert, Oriented Psychiatric: Affect appropriate, Mood appropriate, Depressed (depressed affect) Interpretation - EKG Interpretation Time of EKG #1: 13:22 Rate: Normal, Tachy Rhythm: Other (Atrial fibrillation with RVR) Ectopy: None [place]: NL, Left ST Segment: Other (nonspecific ST-T wave abnormality - possible digitalis effect ) Interpretation: Atrial fib with RVR Critical Care Note - Critical Care Note Total Time (mins): 0 Course - Course Hematology/Chemistry: 05/08/17 13:45 05/08/17 13:45 Orders, Labs, Meds: Lab Review 05/08/17 05/08/17 05/08/17 13:45 13:45 13:45 WBC 7.73 RBC 5.10 Hgb 14.5 Hct 43.7 MCV 85.7 MCH 28.4 MCHC 33.2 RDW Coeff of Dennys 16.4 H Plt Count 179 Immature Gran % (Auto) 0.4 Neut % (Auto) 71.7 Lymph % (Auto) 18.2 [place] % (Auto) 9.3 Eos % (Auto) 0.0 Baso % (Auto) 0.4 Immature Gran # (Auto) 0.0 Neut # 5.5 Lymph # 1.4 [place] # 0.7 Eos # 0.0 Baso # 0.0 Sodium 140 Potassium 3.8 Chloride 105 Carbon Dioxide 25 Anion Gap 13.8 BUN 28 H Creatinine 1.14 H Estimated GFR (MDRD) 61.00 BUN/Creatinine Ratio 24.56 Glucose 120 H Lactic Acid 15.7 Calcium 9.2 Total Bilirubin 1.28 H AST 52 H ALT 43 Alkaline Phosphatase 63 Total Creatine Kinase 581 CK-MB (CK-2) 13.2 H* CK-MB (CK-2) % 2.97203 Troponin I 0.0690 Total Protein 6.2 Albumin 3.5 Globulin 2.7 Albumin/Globulin Ratio 1.30 TSH 3.327 Urine Color Urine Clarity Urine pH Ur Specific [place] Urine Protein Urine Glucose (UA) Urine Ketones Urine Blood Urine Nitrite Urine Bilirubin Urine Urobilinogen Ur Leukocyte Esterase Urine Microscopic RBC Ur Squamous Epith Cells Hyaline Casts Urine Mucus 05/08/17 14:29 WBC RBC Hgb Hct MCV MCH MCHC RDW Coeff of Dennys Plt Count Immature Gran % (Auto) Neut % (Auto) Lymph % (Auto) [place] % (Auto) Eos % (Auto) Baso % (Auto) Immature Gran # (Auto) Neut # Lymph # [place] # Eos # Baso # Sodium Potassium Chloride Carbon Dioxide Anion Gap BUN Creatinine Estimated GFR (MDRD) BUN/Creatinine Ratio Glucose Lactic Acid Calcium Total Bilirubin AST ALT Alkaline Phosphatase Total Creatine Kinase CK-MB (CK-2) CK-MB (CK-2) % Troponin I Total Protein Albumin Globulin Albumin/Globulin Ratio TSH Urine Color Yellow Urine Clarity Clear Urine pH 5.5 Ur Specific [place] 1.025 Urine Protein 1+ Urine Glucose (UA) Negative Urine Ketones Trace Urine Blood 1+ Urine Nitrite Negative Urine Bilirubin 1+ Urine Urobilinogen 2.0 Ur Leukocyte Esterase Negative Urine Microscopic RBC 0-2 Ur Squamous Epith Cells 2-5 Hyaline Casts 0-2 Urine Mucus 1+ Orders Category Date Time Status EKG-(ED ONLY) Stat CARDIO 05/08/17 13:19 Completed CBC W/ AUTO DIFF Stat LAB 05/08/17 13:45 Completed CK [CREATINE KINASE] Stat LAB 05/08/17 13:45 Completed COMPREHENSIVE METABOLIC PANEL Stat LAB 05/08/17 13:45 Completed LACTIC ACID Stat LAB 05/08/17 13:45 Completed THYROID STIMULATING HORMONE Stat LAB 05/08/17 13:45 Completed TROPONIN I Stat LAB 05/08/17 13:45 Completed URINALYSIS C & S IF INDICATED Stat LAB 05/08/17 14:29 Completed Sodium Chloride 0.9% [Sodium Chloride] 1,000 ml MEDS 05/08/17 14:57 Discontinued IV BOLUS Medications Discontinued Medications Generic Name Dose Route Start Last Admin Trade Name Freq PRN Reason Stop Dose Admin Sodium Chloride 1,000 mls @ 1,000 mls/hr 05/08/17 14:57 05/08/17 15:21 Sodium Chloride IV 05/08/17 15:56 1,000 mls/hr BOLUS STA Administration Vital Signs: Temp Pulse Resp BP Pulse Ox 05/08/17 11:36 98.2 F 102 H 20 157/106 H 97 Departure - Departure Time of Disposition: 16:03 Disposition: HOME SELF-CARE Discharge Problem: Dehydration Instructions: Dehydration (ED) Condition: Good Pt referred to PMD for follow-up: Yes (follow up with doctor this week regarding poor appetite) Allergies/Adverse Reactions: Allergies No Known Allergies Allergy (Verified 05/08/17 11:45) Home Medications: Ambulatory Orders Amlodipine Besylate 5 mg PO DAILY #30 tab-cap 12/01/16 Lisinopril 20 mg PO DAILY #30 tab-cap 12/01/16 Memantine HCl [Namenda] 10 mg PO DAILY #30 tab-cap 12/01/16 Disposition Discussed With: Patient, Family
[2017-05-08 13:53] LABS: BASOPHILS % (AUTO) 0.4 % (0.0-3.0); HEMATOCRIT 43.7 % (42.0-52.0); HEMOGLOBIN 14.5 g/dl (14.0-18.0); IMMATURE GRANULOCYTE % (AUTO) 0.4 % (0.0-5.0); LYMPHOCYTES # (AUTO) 1.4 K/uL (0.60-3.4); LYMPHOCYTES % (AUTO) 18.2 (10.0-50.0); MEAN CORPUSCULAR HEMOGLOBIN 28.4 pg (27.0-31.0); MEAN CORPUSCULAR HGB CONC 33.2 (31.8-35.4); MEAN CORPUSCULAR VOLUME 85.7 fl (80.0-94.0); MONOCYTES # (AUTO) 0.7 K/uL (0.4-2.0); MONOCYTES % (AUTO) 9.3 (0-10); NEUTROPHILS # (AUTO) 5.5 K/ul (2.0-6.9); NEUTROPHILS % (AUTO) 71.7; PLATELET COUNT 179 10^3/uL (140-440); WHITE BLOOD COUNT 7.73 K/ul (4.2-10.2)
[2017-05-08 14:35] LABS: BILIRUBIN,URINE 1+ (NEGATIVE); KETONES,URINE Trace (NEGATIVE); LEUKOCYTE ESTERASE ,URINE Negative (NEGATIVE); NITRITE,URINE Negative (NEGATIVE); PH,URINE 5.5 (5-9); PROTEIN,URINE 1+ (NEGATIVE); URINE, BLOOD 1+ (NEGATIVE)
[2017-05-08 14:36] LABS: ADD URINE MICROSCOPIC YES
[2017-05-08 14:50] LABS: ALBUMIN 3.5 g/dL (3.4-5.0); ALBUMIN/GLOBULIN RATIO 1.3; ANION GAP 13.8; BILIRUBIN,TOTAL 1.28 mg/dL (0.00-1.20); BUN/CREATININE RATIO 24.56; CALCIUM 9.2 mg/dL (8.2-10.2); CREATININE 1.14 mg/dL (0.60-1.10); POTASSIUM 3.8 mmol/L (3.5-5.1); TOTAL PROTEIN 6.2 g/dL (5.8-8.1); TROPONIN I 0.069 ng/ml (0.0000-0.4000)
[2017-05-08 14:53] LABS: CREATINE KINASE MB 13.2 ng/ml (0.0-3.6)
[2017-05-08] MEDS ORDERED: SODIUM CHLORIDE 1,000 ML IV STA (14:57)
== END 2017-05-08 16:31 | disposition home or self-care (01) ==
LOC: ED 11:35
DX: E86.0 Dehydration (principal); R53.1 Weakness; I10 Essential (primary) hypertension; I48.91 Unspecified atrial fibrillation; Z79.899 Other long term (current) drug therapy; R07.89 Other chest pain; W19.XXXA Unspecified fall, initial encounter
CPT/HCPCS: 36415; 80053; 81001; 82550; 82553; 83605; 84443; 84484; 85025; 93005; 93010; 96360; 99283

== ENCOUNTER 2017-05-09 10:01 | Emergency (ER) ==
[2017-05-09 10:10] VITALS: BP 143/128; TEMP 97.7
[2017-05-09] MEDS ORDERED: SODIUM CHLORIDE 500 ML IV STA (10:13)
[2017-05-09] MEDS ORDERED: SODIUM CHLORIDE 1,000 ML IV STA (10:27)
[2017-05-09 10:30] LABS: BASOPHILS % (AUTO) 0.3 % (0.0-3.0); EOSINOPHILS % (AUTO) 0.1 % (0.0-7.0); HEMATOCRIT 43.7 % (42.0-52.0); HEMOGLOBIN 14.2 g/dl (14.0-18.0); IMMATURE GRANULOCYTE % (AUTO) 0.5 % (0.0-5.0); LYMPHOCYTES # (AUTO) 1.5 K/uL (0.60-3.4); LYMPHOCYTES % (AUTO) 17.2 (10.0-50.0); MEAN CORPUSCULAR HEMOGLOBIN 28.2 pg (27.0-31.0); MEAN CORPUSCULAR HGB CONC 32.5 (31.8-35.4); MEAN CORPUSCULAR VOLUME 86.7 fl (80.0-94.0); MONOCYTES # (AUTO) 0.8 K/uL (0.4-2.0); MONOCYTES % (AUTO) 8.6 (0-10); NEUTROPHILS # (AUTO) 6.5 K/ul (2.0-6.9); NEUTROPHILS % (AUTO) 73.3; PLATELET COUNT 186 10^3/uL (140-440); RED BLOOD COUNT 5.04 10^6/ul (4.70-6.10); WHITE BLOOD COUNT 8.84 K/ul (4.2-10.2)
[2017-05-09 11:22] LABS: ALBUMIN 3.7 g/dL (3.4-5.0); ALBUMIN/GLOBULIN RATIO 1.23; ANION GAP 15.8; BILIRUBIN,TOTAL 1.82 mg/dL (0.00-1.20); BUN/CREATININE RATIO 23.52; CALCIUM 9.4 mg/dL (8.2-10.2); CREATININE 1.19 mg/dL (0.60-1.10); POTASSIUM 3.8 mmol/L (3.5-5.1); TOTAL PROTEIN 6.7 g/dL (5.8-8.1); TROPONIN I 0.073 ng/ml (0.0000-0.4000)
[2017-05-09 11:32] LABS: CREATINE KINASE MB 18.2 ng/ml (0.0-3.6)
--- NOTE | 2017-05-09 11:41 | CT ---
EXAM: CT scan of the cervical spine without contrast HISTORY: Fall TECHNIQUE: Imaging of the cervical spine was performed without contrast. Sagittal and coronal recon structions and axial images were provided for interpretation. FINDINGS: The occipital condyles, C1 ring appear intact. The odontoid process and C2 vertebral body appear normal. The spinous processes are intact. There is diffuse moderate to severe loss of disc height and degenerative disc disease seen from the C3 down to the T1 level. IMPRESSION: No acute fracture dislocation seen within the cervical spine.
--- NOTE | 2017-05-09 11:42 | CT ---
EXAM: CT head without contrast. HISTORY: Initial presentation for head trauma. COMPARISON: 11/28/2016. TECHNIQUE: Multiple axial images of the brain were obtained from the skull base through the vertex w ithout intravenous contrast. FINDINGS: There is no intracranial hemorrhage or extraaxial collection. The miner-white differentiat ion is maintained without evidence for acute large vascular territory infarction. There are areas of periventricular and subcortical white matter low attenuation. The cortical sulci and cerebral ventr icles are symmetrically enlarged. The basal cisterns are well visualized. There is no hydrocephalus , mass effect, or midline shift. The paranasal sinuses and mastoid air cells are clear. The calvari um is intact. Right frontal scalp soft tissue swelling noted. Since the prior study, there has been no significant interval change. IMPRESSION: 1. No acute intracranial abnormality. 2. Chronic small vessel ischemic changes and atrophy.
--- NOTE | 2017-05-09 11:54 | CT ---
EXAM: CTA CHEST (PE PROTOCOL) HISTORY: Syncope TECHNIQUE: CTA with intravenous contrast. Multiplanar images were provided with 3-D reconstructions . 125 mL Omnipaque. COMPARISON: 04/12/2015 FINDINGS: No pulmonary arterial filling defect. There is moderate atherosclerotic disease. Heart size is bord efrain enlarged. There is no pericardial fluid identified. Small to moderate bilateral pleural effusions. Lungs reveal pulmonary vascular congestion and probabl e mild central interstitial edema. There is mild bibasilar atelectasis. No pneumothorax. The bones reveal moderate degenerative changes of the thoracic spine with scoliosis. Reflux of contra st agent into the hepatic veins consistent with a degree of right heart strain. IMPRESSION: 1. No pulmonary arterial thromboembolism identified. 2. Prominent heart size. Pulmonary vascular congestion, mild central interstitial edema and bilater al pleural effusions. Reflux of contrast agent into the hepatic veins consistent with a degree of ri ght heart strain. 3. Moderate atherosclerotic disease.
--- NOTE | 2017-05-09 12:06 | CT ---
EXAM: CT thoracic spine. HISTORY: Syncope, fall. TECHNIQUE: CT thoracic spine without contrast. Multiplanar images provided. FINDINGS: No comparison CT. The bones appear demineralized. There is mild exaggerated thoracic kyphosis. Diffuse mild to modera te degenerative disc and endplate disease. Posterior disc osteophyte complexes lead to mild central c anal stenosis at several levels including T11/T12. No significant loss of vertebral body height. No acute fracture of the vertebral bodies proper. Facet joints are covered. There are a few lower left sided minimally displaced rib fractures. See also same day CTA chest report for additional peripher al findings. IMPRESSION: 1. Lower left rib fractures. 2. Degenerative changes of the spine.
[2017-05-09] MEDS ORDERED: LIDOCAINE HCL 1% SDV SUBCUT STA (12:31)
[2017-05-09] MEDS ORDERED: CARDIZEM INJ IVP STA (12:40)
--- NOTE | 2017-05-09 12:45 | ED.PDOC ---
General ED Provider: Dr. VIVEK POOL Chief Complaint: Head Injury Stated Complaint: head injury Time Seen by Physician: 10:00 (fall was seen in ED 1 DAY AGO) Mode of Arrival: Wheelchair Information Source: Patient, Family Exam Limitations: No limitations (ALSO FELL ON HIS BACK 1 WEEK PRIOR ) [facility] and T[facility] Documentation Reviewed and Agree: Yes (ABROTHER STATED PT IS WEAK AND TRIPPED AND FELL) Trauma/Injury Complaint Exam - Head Injury Complaint/Exam Location of Pain: Reports: Forehead (SEE PHOTOS) Mechanism of Injury: Reports: Trauma Onset/Duration: 2 HRS Symptoms Are: Still present Initial Severity: Mild Current Severity: Mild Aggravating: Reports: None Alleviating: Reports: None Associated Signs and Symptoms: Denies: Confusion, Memory loss, Seizure, Epistaxis, Dental malocclusion, Neck pain, Nausea, Vomiting Loss of Consciousness: None Related History: Reports: Similar episode SDH Risk Factors: Present: Male, Elderly, Recent trauma Cervical Spine Injury Risk Factors: Present: None Related Surgical History: Reports: None Head Injury Findings: Absent: Hemotympanum, CSF rhinorrhea, Teague's sign, [place] eyes, Meningeal signs, Nystagmus (1 CM LAC ON FOR HEAD SEE PHOTOS) Glascow Coma Scale (see protocol): 15 Focal Weakness: Present: None Focal Sensory Loss: Present: None Gait: Unable Gag Reflex Present: Yes Finger to Nose: Normal Rhomberg Test Positive: No (UNABLE TO TOLERATE ) Babinski Sign: Negative Right, Negative Left Nexus Low Risk Criteria: No post-midline CS tender, No evidence of intoxicat., No Altered LOC, No focal neuro deficit, No distracting injuries Differential Diagnoses: Sprain, Strain, Other (HEAD INJURT AFIB ) Review of Systems - Review Of Systems Constitutional: Reports: No symptoms Eyes: Reports: No symptoms Ears, Nose, Mouth, Throat: Reports: No symptoms Respiratory: Reports: No symptoms Cardiac: Reports: No symptoms GI: Reports: No symptoms : Reports: No symptoms Musculoskeletal: Reports: No symptoms Skin: Reports: No symptoms Neurological: Reports: No symptoms Endocrine: Reports: No symptoms Hematologic/Lymphatic: Reports: No symptoms All Other Systems: Reviewed and Negative Past Medical History - Past Medical History Previously Healthy: Yes Endocrine: Reports: None Cardiovascular: Reports: Hypertension, A-Fib Respiratory: Reports: None Hematological: Reports: None Gastrointestinal: Reports: None Genitourinary: Reports: None Neuro/Psych: Reports: None Musculoskeletal: Reports: Arthritis Cancer: Reports: None Other Pertinent Past Medical History: GALLBLADDER HTN IRREG HB; NAMENDA LISINOPRIL AMLODIPINE - Surgical History General Surgical History: Reports: Cholecystectomy - Family History Family History: Reports: None - Social History Smoking Status: Former smoker Hx Substance Use: No Alcohol Screening: None - Immunizations Tetanus Shot up to Date: (4 yrs ago) Influenza Vaccine within 12 Months: Yes Pneumococcal Vaccine up to Date: Yes Physical Exam - Physical Exam Appearance: Well-appearing, No pain distress, Well-nourished Eyes: OSBALDO, EOMI, Conjunctiva clear ENT: Ears normal, Nose normal, Oropharynx normal Respiratory: Airway patent, Breath sounds clear, Breath sounds equal, Respirations nonlabored Cardiovascular: Pulses normal, No rub, No murmur, Irregular rhythm GI/: Soft, Nontender, No masses, Bowel sounds normal, No Organomegaly Musculoskeletal: Normal strength, ROM intact, No edema, No calf tenderness Skin: Warm, Dry, Normal color Neurological: Sensation intact, Motor intact, Reflexes intact, Cranial nerves intact, Alert, Oriented Psychiatric: Affect appropriate, Mood appropriate Interpretation - Radiology Interpretation Radiology Interpretation By: Radiologist Radiology Results: No acute changes Procedures - Laceration/Wound Repair No standard instances Wound Description: Linear Wound Length (cm): 1 Wound Width: 02CM Wound Depth: 0.1CM Wound Explored: Clean Wound Prep: Hibiclens Anesthesia: Lidocaine (1ML PLAIN) Wound Debrided: Minimal Wound Margins: Revised Wound Repaired With: Sutures Suture Size and Type: 3 NYLON Number of Sutures: 4 Number of [place]: 0 Layer Closure?: No Re-Evaluation - Re-Evaluation Time of Re-Evaluation: 12:00 Status: Improved Vital Signs Stable: Yes Pain Level: 0 Appearance: NAD Lungs: Clear Skin: Warm and Dry Neuro: Alert and Oriented X3 CV: Other (FAST IRREGULAR) - Re-Evaluation Time of Re-Evaluation: 12:48 Status: Improved Vital Signs Stable: Yes Pain Level: 0 Appearance: NAD Skin: Warm and Dry Neuro: Alert and Oriented X3 CV: Other (IRRR) Physician Notification - Case Discussed Physician Notified: PMD Time of Notification: 12:30 (TRANSFER NOW) Critical Care Note - Critical Care Note Total Time (mins): 2 Course - Course Hematology/Chemistry: 05/09/17 10:20 05/09/17 10:20 Orders, Labs, Meds: Lab Review 05/09/17 05/09/17 05/09/17 10:20 10:20 10:20 WBC 8.84 RBC 5.04 Hgb 14.2 Hct 43.7 MCV 86.7 MCH 28.2 MCHC 32.5 RDW Coeff of Dennys 16.4 H Plt Count 186 Immature Gran % (Auto) 0.5 Neut % (Auto) 73.3 Lymph % (Auto) 17.2 [place] % (Auto) 8.6 Eos % (Auto) 0.1 Baso % (Auto) 0.3 Immature Gran # (Auto) 0.0 Neut # 6.5 Lymph # 1.5 [place] # 0.8 Eos # 0.0 Baso # 0.0 Sodium 141 Potassium 3.8 Chloride 105 Carbon Dioxide 24 Anion Gap 15.8 BUN 28 H Creatinine 1.19 H Estimated GFR (MDRD) 58.00 BUN/Creatinine Ratio 23.52 Glucose 119 H Lactic Acid 23.6 H D Calcium 9.4 Total Bilirubin 1.82 H AST 65 H ALT 54 Alkaline Phosphatase 64 Total Creatine Kinase 816 CK-MB (CK-2) 18.2 H* CK-MB (CK-2) % 2.02961 Troponin I 0.0730 Total Protein 6.7 Albumin 3.7 Globulin 3.0 Albumin/Globulin Ratio 1.23 Procalcitonin TSH 3.522 Free T4 1.06 05/09/17 10:20 WBC RBC Hgb Hct MCV MCH MCHC RDW Coeff of Dennys Plt Count Immature Gran % (Auto) Neut % (Auto) Lymph % (Auto) [place] % (Auto) Eos % (Auto) Baso % (Auto) Immature Gran # (Auto) Neut # Lymph # [place] # Eos # Baso # Sodium Potassium Chloride Carbon Dioxide Anion Gap BUN Creatinine Estimated GFR (MDRD) BUN/Creatinine Ratio Glucose Lactic Acid Calcium Total Bilirubin AST ALT Alkaline Phosphatase Total Creatine Kinase CK-MB (CK-2) CK-MB (CK-2) % Troponin I Total Protein Albumin Globulin Albumin/Globulin Ratio Procalcitonin < 0.05 TSH Free T4 Orders Category Date Time Status EKG-(ED ONLY) Stat CARDIO 05/09/17 10:09 Completed NPO REMINDER: IMAGING ONCE CARE 05/09/17 10:13 Completed ED IV/MEDIPORT/POWERPORT .ONCE EMERGENCY 05/09/17 10:09 Active BLOOD CULTURE Stat LAB 05/09/17 10:20 Ordered CBC W/ AUTO DIFF Stat LAB 05/09/17 10:20 Completed COMPREHENSIVE METABOLIC PANEL Stat LAB 05/09/17 10:20 Completed CREATINE KINASE Stat LAB 05/09/17 10:20 Completed FREE T4 (FREE THYROXINE) Stat LAB 05/09/17 10:20 Completed LACTIC ACID Stat LAB 05/09/17 10:20 Completed PROCALCITONIN Stat LAB 05/09/17 10:20 Completed THYROID STIMULATING HORMONE Stat LAB 05/09/17 10:20 Completed TROPONIN I Stat LAB 05/09/17 10:20 Completed URINALYSIS C & S IF INDICATED Stat LAB 05/09/17 10:09 Uncollected 0.9 % Sodium Chloride [Saline Flush] MEDS 05/09/17 10:09 Active 1 syr IVF PRN PRN Diltiazem HCl Inj [Cardizem Inj] MEDS 05/09/17 12:40 Stat 15 mg IVP ONCE STA Lidocaine HCl/Pf [Lidocaine HCl 1% Sdv] MEDS 05/09/17 12:31 Stat 5 ml SUBCUT ONCE STA Sodium Chloride 0.9% [Sodium Chloride] 1,000 ml MEDS 05/09/17 10:[address] CERVICAL SPINE W/O CONTRAST Stat RADS 05/09/17 10:[address] CHEST PE PROTOCOL Stat RADS 05/09/17 10:[address] HEAD W/O CONTRAST Stat RADS 05/09/17 10:[address] THORACIC SPINE W/O CONTRAST Stat RADS 05/09/17 10:12 Completed Medications Generic Name Dose Route Start Last Admin Trade Name Freq PRN Reason Stop Dose Admin Sodium Chloride 1 syr 05/09/17 10:09 05/09/17 10:36 Saline Flush IVF 1 syr PRN PRN Administration To flush IV Discontinued Medications Generic Name Dose Route Start Last Admin Trade Name Freq PRN Reason Stop Dose Admin Diltiazem HCl 15 mg 05/09/17 12:40 Cardizem Inj IVP 05/09/17 12:41 ONCE STA Sodium Chloride 1,000 mls @ 1,000 mls/hr 05/09/17 10:27 05/09/17 10:36 Sodium Chloride IV 05/09/17 11:26 1,000 mls/hr BOLUS STA Administration Lidocaine HCl 5 ml 05/09/17 12:31 Lidocaine Hcl 1% Sdv SUBCUT 05/09/17 12:32 ONCE STA Vital Signs: Temp Pulse Resp BP Pulse Ox 05/09/17 10:02 97.7 F 110 H 20 143/128 H 97 Departure - Departure Time of Disposition: 14:00 Disposition: TSF SHORT-TRM HOSP Discharge Problem: Injury of head A-fib Qualifiers: Atrial fibrillation type: persistent Qualified Code(s): I48.1 - Persistent atrial fibrillation Instructions: A-fib (Atrial Fibrillation) (ED) Condition: Good Pt referred to PMD for follow-up: Yes (TRANSFER NOW) Additional Instructions: Please call your Family Physician as soon as possible to schedule a follow-up appointment. Allergies/Adverse Reactions: Allergies No Known Allergies Allergy (Verified 05/09/17 10:13) Home Medications: Ambulatory Orders Amlodipine Besylate 5 mg PO DAILY #30 tab-cap 12/01/16 Lisinopril 20 mg PO DAILY #30 tab-cap 12/01/16 Memantine HCl [Namenda] 10 mg PO DAILY #30 tab-cap 12/01/16 Disposition Discussed With: Patient, Family
[2017-05-09 13:13] LABS: ABG BASE EXCESS -6 (-2.0-2.0); ABG HCO3 18.6 (22.0-26.0); ABG TCO2 19 (22.0-28.0)
--- NOTE | 2017-05-09 13:58 | CT ---
EXAM: CT of the abdomen pelvis without contrast History: Abdominal pain, increased lactic acid Comparison: Chest CT 05/09/2017, CT abdomen pelvis 04/12/2015 Technique: Multiplanar CT images through the abdomen pelvis were obtained without the administration of IV contrast Findings: Heart is enlarged. Coronary calcifications. Bilateral pleural effusions and bibasilar in terstitial lung infiltrates. Left lower rib fractures as previously described. Degenerative changes of the spine. Motion artifact limits evaluation within the abdomen pelvis. Status post cholecystectomy. No obviou s focal liver or splenic lesions. Trace perihepatic fluid. No peripancreatic inflammation. Atheros clerotic vascular calcifications. No renal masses. Nonspecific bilateral perinephric stranding. Ap pendix is not seen. No bowel obstruction. No free air. Enlarged prostate abutting the base. The b ladder. No focal bladder wall thickening. No Cl rectal inflammation. No portal venous gas and n o bowel pneumatosis or bowel wall thickening. Previous ventral hernia repair. Impression: 1. Nonspecific bilateral perinephric stranding. 2. No bowel wall thickening and no bowel obstruction. 3. Enlarged prostate abutting the base of the bladder. 4. Atherosclerotic vascular disease. 5. Coronary artery disease. 6. Bilateral pleural effusions and bibasilar interstitial lung infiltrates could represent pneumonia and/or edema. 7. Left rib fractures.
[2017-05-09 14:07] LABS: BILIRUBIN,URINE Negative (NEGATIVE); KETONES,URINE 1+ (NEGATIVE); LEUKOCYTE ESTERASE ,URINE Negative (NEGATIVE); NITRITE,URINE Negative (NEGATIVE); PROTEIN,URINE Trace (NEGATIVE); URINE, BLOOD 2+ (NEGATIVE)
[2017-05-09 14:12] LABS: ADD URINE MICROSCOPIC YES; BACTERIA,URINE TRACE (NOT PRESENT)
== END 2017-05-09 14:29 | disposition short-term general hospital (02) ==
LOC: ED 10:01
DX: S01.81XA Laceration without foreign body of other part of head, initial encounter (principal); I48.1 Persistent atrial fibrillation; R53.1 Weakness; I10 Essential (primary) hypertension; S22.42XA Multiple fractures of ribs, left side, initial encounter for closed fracture; W19.XXXA Unspecified fall, initial encounter
CPT/HCPCS: 36415; 80053; 81001; 82550; 82553; 82803; 83605; 84145; 84439; 84443; 84484; 85025; 87040; 93005; 93010; 96361; 96374; 99285

== ENCOUNTER 2017-05-28 09:14 | Outpatient (CLI) ==
--- NOTE | 2017-05-28 10:17 | DI ---
EXAM: Modified barium swallow. History: Aspiration Technique: Left lateral video fluoroscopy was performed in conjunction with speech therapy using the multiple consistencies to evaluate swallowing function. Findings / impression: No aspiration or penetration was observed. Early spillover was observed with most of the consistencies. Please see dedicated speech pathology report for further details.
--- NOTE | 2017-05-28 10:42 | RS.MODBRM ---
Subjective Number of treatment sessions: 1 Date of Evaluation: 05/28/17 Date of Onset/Injury/Change in Status: 05/15/17 Surgery Performed?: No Treatment Diagnosis: oropharyngeal dysphagia Current Level of Function: The patient currently resides in a local assisted care facility where he is assisted with all aspects of ADL's. Current Diet: Puree solids with thin liquids Current Subjective/complaints:: A clinical bedside dysphagia evaluation was completed on 05/15/17 due to increased difficulty chewing regular textures and swallowing of medications. Evaluation resulted in diet modification to mechanical soft with thin liquids. On 05/18/17, the RELAY CHECKER noted that further modification was performed to puree with thin liquids due to prolonged mastication. The patient reported dislike of puree solids and trails of mechanical soft began on 05/22/17. The patient reports that at times after he swallows "things pop back up". The patient reports a history of GERD managed by medications. RELAY CHECKER recommeded modified barium swallow study to assess safest diet texture and to rule out aspiration. Medical History Comments:: The patient's medical history is significant for atrial fibrillation with rapid ventricular response-rate controlled, HTN, falls , dysphagia Hx Home Medications: Please refer to the patient's medical chart for complete list as faxed copy is difficult to read. Patient's Goals: To consume the least restrictive diet demonstrating no s/s of aspiration or difficulty. Food Presented Thin Liquid: cup (Thin barium was presented via cup with the patient demonstrating minimal premature spillage into the vallecula which was cleared with a double swallow. No aspiration or penetration was observed.) Pureed Solid: 1/4 teaspoon (The patient was presented with pudding containing barium paste demonstrating mastication that was within functional limits. The patient demonstrated premature spillage into the vallecula - cleared with double swallow. No aspiration or penetration was observed. ) Ground Meat: 1/4 teaspoon Cubed Soft Fruit: 1/4 teaspoon (Cubed, soft fruit was presented as a single consistency and also as a mixed consistency. With both consistencies the patient demonstrated prolonged mastication in excess of 30 seconds. Upon propulsion the patient demonstrated no premature spillage or aspiration. ) Vanilla Wafer: 1/4 cookie Other:: cracker with barium. premature loss; no aspiration Oral Phase - Oral Phase Bolus Formation: Mild Impairment Mastication: Mild Impairment Lingual Movement: Mild Impairment A/P Propulsion: Mild Impairment Premature Vallecular Pooling: Mild Oral Residue: Scant (The patient demonstrates oral musculature that is mild- moderatly weak impacting his ability to form bolus and allow base of tongue to reduce spillage. The patient also presents with several missing teeth impacting his mastication abilities resulting in prolonged mastication times. The patient demonstrates scant amount of stasis which was cleared with liquid wash.) Pharyngeal Phase Pharyngeal Response: Mild Impairment Base of Tongue: Mild Impairment Epiglottic Movement: WFL Laryngeal Excursion: Mild Impairment Vallecular Residue: Mild Pyriform Residue: None Summary and Recommendations - Recommendations PO Diet: Mechanical Soft, Thin Liquids Comments:: The patient presents with mild orophayrngeal dysphagia characterized by decreased strength of the oral and laryngeal musculature. The patient demonstrated no aspiration or penetration throughout testing but did display premature spillage and prolonged mastication. The patient was receptive to cues for double swallow and alternation of solids/liquids. The patient would benefit from continued treatment in order to address decreased oral and laryngeal strength. It should also be noted that when allowed to self feed the patient required cues to decrease rate. The patient may benefit from bolus controlled equipment in order to maximize safety with oral intake. Further Therapy Indicated?: Yes Functional Reporting G Codes: [id number] Severity Impairment Rationale: Swallowing functional limitation, current status at time of initial therapy treatment/episode outset is documented as mild impaired 0-19%.
== END 2017-05-28 09:15 | disposition home or self-care (01) ==
LOC: RAD 09:14
PROVIDERS: ATTEND General Practice
DX: R05 Cough (principal); R13.12 Dysphagia, oropharyngeal phase; R41.841 Cognitive communication deficit
CPT/HCPCS: 36415; 82140

== ENCOUNTER 2017-06-06 01:25 | Outpatient (CLI) | payer OTHER | END 2017-06-06 01:26 | disposition home or self-care (01) | LOC: AMBL 01:25 | PROVIDERS: ATTEND Family Medicine | DX: R07.9 Chest pain, unspecified (principal); R06.02 Shortness of breath; R06.2 Wheezing; I48.91 Unspecified atrial fibrillation ==

== ENCOUNTER 2017-07-03 23:21 | Emergency (ER) ==
[2017-07-03] MEDS ORDERED: HYDROCORTISONE 1% CREAM TP STA (23:32)
[2017-07-03] MEDS ORDERED: HYDROCORTISONE 1% CREAM TP ONE (23:34)
--- NOTE | 2017-07-03 23:34 | ED.PDOC ---
General ED Provider: Dr. ANTHONY SHANKS Chief Complaint: Rash Stated Complaint: Patient is an 82 year old male who is brought by family with a rash and itchy perianal area that started when he woke up. He was rec[place]lty in a [place] [facility] [place]. HE took a shower and applied desitin onintment. Denies any pain at this time but state it is itchy. Time Seen by Physician: 23:45 Mode of Arrival: Wheelchair Information Source: Patient, Family Exam Limitations: No limitations [facility] Nursing and Triage Documentation Reviewed and Agree: Yes Skin Complaint Exam - Skin Rash/Itching Complaint/Exam Onset/Duration: 2 hours Symptoms Are: Still present (but better) Initial Severity: Moderate Current Severity: Mild Location: Sacral area. Prior Treatment: Desitin Alleviating: Reports: OTC creams/salves Associated Signs and Symptoms: Denies: Difficulty breathing, Fever, Chills Skin Findings: Present: Purpura Body Picture: 1 - Erythematous rash Differential Diagnoses: Tinea Review of Systems - Review Of Systems Constitutional: Reports: No symptoms Eyes: Reports: No symptoms Ears, Nose, Mouth, Throat: Reports: No symptoms Respiratory: Reports: No symptoms Cardiac: Reports: No symptoms GI: Reports: No symptoms : Reports: No symptoms Musculoskeletal: Reports: No symptoms Skin: Reports: Rash Neurological: Reports: No symptoms Endocrine: Reports: No symptoms Hematologic/Lymphatic: Reports: No symptoms All Other Systems: Reviewed and Negative Past Medical History - Past Medical History Previously Healthy: Yes Endocrine: Reports: None Cardiovascular: Reports: Hypertension, A-Fib Respiratory: Reports: None Hematological: Reports: None Gastrointestinal: Reports: None Genitourinary: Reports: None Neuro/Psych: Reports: None Musculoskeletal: Reports: Arthritis Cancer: Reports: None Other Pertinent Past Medical History: GALLBLADDER HTN IRREG HB; NAMENDA LISINOPRIL AMLODIPINE - Surgical History General Surgical History: Reports: Cholecystectomy - Family History Family History: Reports: None - Social History Smoking Status: Former smoker Hx Substance Use: No Alcohol Screening: None - Immunizations Influenza Vaccine within 12 Months: Yes Pneumococcal Vaccine up to Date: Yes Physical Exam - Physical Exam Appearance: Well-appearing (frail elderly ) Ill-appearing: Mild Eyes: OSBALDO, EOMI, Conjunctiva clear Neck: Supple Respiratory: Airway patent, Breath sounds clear, Breath sounds equal, Respirations nonlabored Cardiovascular: RRR, Pulses normal, No rub, No murmur GI/: Soft, Nontender, No masses, Bowel sounds normal, No Organomegaly Skin: Warm, Dry Neurological: Sensation intact, Alert, Oriented Psychiatric: Affect appropriate, Mood appropriate Critical Care Note - Critical Care Note Total Time (mins): 0 Course - Course Orders, Labs, Meds: Orders Category Date Time Status Hydrocortisone [Hydrocortisone 1% Cream] MEDS 07/03/17 23:34 Discontinued 1 applic TP .STK-MED ONE Hydrocortisone [Hydrocortisone 1% Cream] MEDS 07/03/17 23:32 Discontinued 1 applic TP ONCE STA Medications Discontinued Medications Generic Name Dose Route Start Last Admin Trade Name Freq PRN Reason Stop Dose Admin Hydrocortisone 1 applic 07/03/17 23:32 07/03/17 23:45 Hydrocortisone 1% Cream TP 07/03/17 23:33 1 applic ONCE STA Administration Vital Signs: Temp Pulse Resp BP Pulse Ox 07/03/17 23:26 97.7 F 86 24 138/95 H 97 Departure - Departure Time of Disposition: 23:40 Disposition: HOME SELF-CARE Discharge Problem: Dermatitis Instructions: Dermatitis (ED) Condition: Stable Pt referred to PMD for follow-up: Yes Additional Instructions: Follow up with PCP in 3-5 days if not better. use Cream two times a day as needed for itching. Allergies/Adverse Reactions: Allergies No Known Allergies Allergy (Verified 07/03/17 23:39) Home Medications: Ambulatory Orders Amlodipine Besylate 5 mg PO DAILY #30 tab-cap 12/01/16 Memantine HCl [Namenda] 10 mg PO DAILY #30 tab-cap 12/01/16 Diltiazem HCl [Diltiazem 24hr Cd] 240 mg PO d 06/20/17 Disposition Discussed With: Patient, Family
[2017-07-03 23:39] VITALS: BP 138/95; TEMP 97.7; BMI 20.7
== END 2017-07-04 00:15 | disposition home or self-care (01) ==
LOC: ED 23:21
DX: L30.9 Dermatitis, unspecified (principal)
CPT/HCPCS: 99282

== ENCOUNTER 2017-07-21 20:55 | Inpatient (IN) ==
[2017-07-21] MEDS ORDERED: SODIUM CHLORIDE 1,000 ML IV STA ×2 (20:57→20:59)
--- NOTE | 2017-07-21 21:41 | CT ---
EXAM: CT head without contrast. HISTORY: Change in mentation. PROCEDURE: Contiguous axial CT images of the head without contrast with coronal and sagittal reforma ts. FINDINGS: There is diffuse cerebral atrophy. The ventricles and basal cisterns are normal in size an d configuration. No evidence of mass or midline shift. No intracranial hemorrhage or evidence of la rge vessel infarct. No extra-axial fluid collection. There are chronic small vessel ischemic change s in the white matter. The paranasal sinuses and mastoid air cells are well-aerated. Impression: No intracranial hemorrhage or evidence of large vessel infarct. Chronic small vessel ischemic changes. Diffuse cerebral atrophy.
--- NOTE | 2017-07-21 21:45 | CT ---
Exam: CT abdomen and pelvis without IV contrast. Clinical indication: Abdominal pain. TECHNIQUE: Axial unenhanced CT images of the abdomen and pelvis were obtained followed by coronal an d sagittal reformats. Comparison is made to the prior study dated 05/09/2017. Findings: There is a small right pleural effusion. There is some mild bibasilar atelectatic changes. There ar e extensive coronary artery calcifications and cardiomegaly. The remainder of the visualized portion s of the lower thorax are within normal limits. There is no free intra-abdominal gas or fluid. There has been a prior cholecystectomy. The liver, adrenals, pancreas, spleen, and kidneys are unremarkable, given the limitations of an unen hanced CT. The previously noted perinephric stranding is unchanged. There is aortoiliac atherosclerotic vascular calcifications. There are no enlarged abdominal or pelvic lymph nodes, by size criteria. The bowel is grossly unremarkable. There is evidence of prior bilateral inguinal hernia repair. There is multilevel lumbar degenerative disc and facet disease. There are partially healed old left tenth and eleventh rib fractures. The remainder the visualized bony structures are unremarkable. Impression: 1. Cardiomegaly. 2. Small right pleural effusion. 3. Partially healed old left tenth and eleventh rib fractures. 4. Otherwise unremarkable CT of the abdomen and pelvis, given the limitations of an unenhanced CT.
--- NOTE | 2017-07-21 21:48 | CT ---
EXAM: CT of the chest without contrast. HISTORY: Cough. PROCEDURE: Contiguous axial CT images of the chest without contrast with coronal and sagittal reform ats. FINDINGS: The heart is enlarged. The thoracic aorta is within normal limits in diameter. There are c oronary artery calcifications. There is a small layering right pleural effusion. There are bibasilar infiltrates and consolidation consistent with pneumonia. There are multiple old rib fractures. There are degenerative changes in the spine. Impression: Bilateral infiltrates and consolidation consistent with pneumonia. Small right pleural effusion. Cardiomegaly. Atherosclerotic vascular disease.
[2017-07-21] MEDS ORDERED: ROCEPHIN 1 GM in SODIUM CHLORIDE 50 ML IV STA (22:19)
[2017-07-21] MEDS ORDERED: ROCEPHIN ONE (22:23)
--- NOTE | 2017-07-21 23:07 | ED.PDOC ---
General ED Provider: Dr. ALYSON JARRELL-ER Chief Complaint: Weakness Stated Complaint: hes coughing and not eating or drinki ng Time Seen by Physician: 20:55 Mode of Arrival: Ambulance Information Source: EMT Exam Limitations: Dementia Primary [facility] Nursing and Triage Documentation Reviewed and Agree: Yes Respiratory Complaint Exam - Respiratory Complaint/Exam Onset/Duration: this week Symptoms Are: Still present Timing: Constant Initial Severity: Mild Current Severity: Mild Location: Chest Character: Reports: Non-productive cough Aggravating: Reports: URI Alleviating: Reports: None Associated Signs and Symptoms: Reports: URI, Decreased oral intake. Denies: Rapid breathing, Dyspnea, Fever, Chills, Chest pain, Pleuritic chest pain, Wheezing, Hemoptysis, Dizziness, Calf pain, Calf swelling, Edema, Nasal congestion, Hoarseness, Sinus discomfort, Vomiting, Sore throat, Weight loss, Increased thirst, Increased appetite, Increased urination History of Healthcare-Acquired Pneumonia: No Home Oxygen Use: No Recent Stress Test: No Recent Echo/LV Function: No Current Antibiotic Use: No Current Asthma Medication Use: No Respiratory Distress: None Dysphagia Present: No Stridor Present: No JVD Present: No Accessory Muscle Use: No Retractions: Not Present Diminished Breath Sounds: No Sinus Tenderness: None Grunting Respirations: No Kussmaul Respirations: No Differential Diagnoses: Pneumonia, Bronchitis Review of Systems - Review Of Systems Constitutional: Reports: Weakness, Loss of appetite Eyes: Reports: No symptoms Ears, Nose, Mouth, Throat: Reports: No symptoms Respiratory: Reports: Cough Cardiac: Reports: No symptoms GI: Reports: No symptoms : Reports: No symptoms Musculoskeletal: Reports: No symptoms Skin: Reports: No symptoms Neurological: Reports: No symptoms Endocrine: Reports: No symptoms Hematologic/Lymphatic: Reports: No symptoms All Other Systems: Reviewed and Negative Past Medical History - Past Medical History Previously Healthy: Yes Endocrine: Reports: None Cardiovascular: Reports: Hypertension, A-Fib Respiratory: Reports: None Hematological: Reports: None Gastrointestinal: Reports: None Genitourinary: Reports: None Neuro/Psych: Reports: None Musculoskeletal: Reports: Arthritis Cancer: Reports: None Other Pertinent Past Medical History: GALLBLADDER HTN IRREG HB; NAMENDA LISINOPRIL AMLODIPINE - Surgical History General Surgical History: Reports: Cholecystectomy - Family History Family History: Reports: None - Social History Smoking Status: Former smoker Hx Substance Use: No Alcohol Screening: None - Immunizations Tetanus Shot up to Date: (UNKNOWN) Influenza Vaccine within 12 Months: Yes Pneumococcal Vaccine up to Date: Yes Physical Exam - Physical Exam Appearance: Well-appearing, No pain distress, Well-nourished Eyes: OSBALDO, EOMI, Conjunctiva clear ENT: Ears normal, Nose normal, Oropharynx normal Neck: Supple Respiratory: Crackles, Rhonchi Cardiovascular: Irregular rhythm GI/: Soft, Nontender, No masses, Bowel sounds normal, No Organomegaly Musculoskeletal: Normal strength, ROM intact, No edema, No calf tenderness Skin: Warm, Dry, Normal color Neurological: Sensation intact, Motor intact, Reflexes intact, Cranial nerves intact, Alert, Oriented Psychiatric: Affect appropriate Interpretation - Radiology Interpretation Radiology Interpretation By: Radiologist Radiology Results: Positive Exam Interpreted: CT Scan - EKG Interpretation Time of EKG #1: 23:08 Rate: Normal Rhythm: Other Ectopy: None [place]: NL ST Segment: Normal Physician Notification - Case Discussed Physician Notified: dr fernandez Time of Notification: 23:12 Critical Care Note - Critical Care Note Total Time (mins): 60 Course - Course Hematology/Chemistry: 07/21/17 21:35 07/21/17 21:35 Orders, Labs, Meds: Lab Review 07/21/17 07/21/17 07/21/17 20:56 21:00 21:35 WBC 11.59 H RBC 3.77 L Hgb 10.9 L Hct 33.6 L MCV 89.1 MCH 28.9 MCHC 32.4 RDW Coeff of Dennys 16.3 H Plt Count 178 Immature Gran % (Auto) 0.7 Neut % (Auto) 79.0 Lymph % (Auto) 10.3 Haines % (Auto) 9.8 Eos % (Auto) 0.1 Baso % (Auto) 0.1 Immature Gran # (Auto) 0.1 Neut # 9.2 H Lymph # 1.2 Haines # 1.1 Eos # 0.0 Baso # 0.0 Puncture Site Lrad O2 Saturation 97.0 ABG pH 7.453 H ABG pCO2 24.0 L ABG pO2 85.0 ABG HCO3 16.8 L ABG Total CO2 18 L ABG Base Excess -7 L Scott Test + FiO2 % 21.0 Sodium Potassium Chloride Carbon Dioxide Anion Gap BUN Creatinine Estimated GFR (MDRD) BUN/Creatinine Ratio Glucose Calcium Total Bilirubin AST ALT Alkaline Phosphatase Total Creatine Kinase CK-MB (CK-2) CK-MB (CK-2) % Troponin I Total Protein Albumin Globulin Albumin/Globulin Ratio Influenza A (Rapid) Negative Influenza B (Rapid) Negative 07/21/17 07/21/17 21:35 21:35 WBC RBC Hgb Hct MCV MCH MCHC RDW Coeff of Dennys Plt Count Immature Gran % (Auto) Neut % (Auto) Lymph % (Auto) Haines % (Auto) Eos % (Auto) Baso % (Auto) Immature Gran # (Auto) Neut # Lymph # Haines # Eos # Baso # Puncture Site O2 Saturation ABG pH ABG pCO2 ABG pO2 ABG HCO3 ABG Total CO2 ABG Base Excess Scott Test FiO2 % Sodium 138 Potassium 3.9 Chloride 111 H Carbon Dioxide 16 L Anion Gap 14.9 BUN 54 H Creatinine 1.47 H Estimated GFR (MDRD) 46.00 BUN/Creatinine Ratio 36.73 Glucose 113 Calcium 8.2 Total Bilirubin 0.73 AST 256 H ALT 629 H Alkaline Phosphatase 109 Total Creatine Kinase 245 CK-MB (CK-2) 11.9 H* CK-MB (CK-2) % 4.79898 Troponin I 2.4940 H* Total Protein 5.3 L Albumin 2.8 L Globulin 2.5 Albumin/Globulin Ratio 1.12 Influenza A (Rapid) Influenza B (Rapid) Orders Category Date Time Status ABG DRAW REQUEST Stat CARDIO 07/21/17 20:57 Completed EKG-(ED ONLY) Stat CARDIO 07/21/17 20:57 Completed Operational Test Mechanic [ED DIRECTOR OF KNOWLEDGE MANAGEMENT APPLIED] .ONCE EMERGENCY 07/21/17 20:57 Active ED IV/MEDIPORT/POWERPORT .ONCE EMERGENCY 07/21/17 20:57 Active ABG Stat LAB 07/21/17 20:56 Completed BLOOD CULTURE (ED ONLY) Stat LAB 07/21/17 21:35 Received CBC W/ AUTO DIFF Stat LAB 07/21/17 21:35 Completed COMPREHENSIVE METABOLIC PANEL Stat LAB 07/21/17 21:35 Completed CREATINE KINASE Stat LAB 07/21/17 21:35 Completed RAPID FLU A/B Stat LAB 07/21/17 21:00 Completed TROPONIN I Stat LAB 07/21/17 21:35 Completed URINALYSIS C & S IF INDICATED Stat LAB 07/21/17 20:57 Uncollected 0.9 % Sodium Chloride [Saline Flush] MEDS 07/21/17 20:57 Ordered 1 syr IVF PRN PRN Ceftriaxone Sodium [Rocephin] MEDS 07/21/17 22:23 Discontinued 1 gm .ROUTE .STK-MED ONE Ceftriaxone Sodium [Rocephin] 1 gm MEDS 07/21/17 22:19 Discontinued 0.9 % Sodium Chloride [Sodium Chloride] 50 ml IV ONCE Sodium Chloride 0.9% [Sodium Chloride] 1,000 ml MEDS 07/21/17 20:57 Discontinued IV BOLUS Sodium Chloride 0.9% [Sodium Chloride] 1,000 ml MEDS 07/21/17 20:[address] ABDOMEN/PELVIS WO CONTRAST Stat RADS 07/21/17 20:[address] CHEST W/O CONTRAST Stat RADS 07/21/17 20:[address] HEAD W/O CONTRAST Stat RADS 07/21/17 20:58 Completed Medications Generic Name Dose Route Start Last Admin Trade Name Freq PRN Reason Stop Dose Admin Sodium Chloride 1 syr 07/21/17 20:57 Saline Flush IVF PRN PRN To flush IV Discontinued Medications Generic Name Dose Route Start Last Admin Trade Name Freq PRN Reason Stop Dose Admin Sodium Chloride 1,000 mls @ 1,000 mls/hr 07/21/17 20:57 07/21/17 21:06 Sodium Chloride IV 07/21/17 21:56 1,000 mls/hr BOLUS STA Administration Sodium Chloride 1,000 mls @ 1,000 mls/hr 07/21/17 20:59 07/21/17 22:09 Sodium Chloride IV 07/21/17 21:58 1,000 mls/hr BOLUS STA Administration Ceftriaxone Sodium 1 gm/ 50 mls @ 75 mls/hr 07/21/17 22:19 07/21/17 22:30 Sodium Chloride IV 07/21/17 22:58 75 mls/hr ONCE STA Administration Vital Signs: Temp Pulse Resp BP Pulse Ox 07/21/17 20:56 97.1 F L 75 18 101/53 L 98 Departure - Departure Time of Disposition: 23:12 Disposition: ADMITTED INPATIENT Discharge Problem: Dehydration, Elevated troponin Pneumonia Qualifiers: Pneumonia type: due to unspecified organism Laterality: bilateral Lung location : unspecified part of lung Qualified Code(s): J18.9 - Pneumonia, unspecified organism Instructions: Pneumonia (ED) Condition: Poor Pt referred to PMD for follow-up: Yes Allergies/Adverse Reactions: Allergies No Known Allergies Allergy (Verified 07/03/17 23:39) Home Medications: Ambulatory Orders Amlodipine Besylate 5 mg PO DAILY #30 tab-cap 12/01/16 Memantine HCl [Namenda] 10 mg PO DAILY #30 tab-cap 12/01/16 Diltiazem HCl [Diltiazem 24hr Cd] 240 mg PO d 06/20/17 Disposition Discussed With: Family
[2017-07-21] MEDS ORDERED: NON-FORMULARY MEDICATION (Diltiazem Hcl [Diltiazem 24hr Cd] 240 MG) PO SCH (23:30)
[2017-07-22 00:53] VITALS: BMI 19.1
[2017-07-22] MEDS: XOPENEX 0.63 MG NEB SCH ×3 (04:36→20:30)
[2017-07-22] MEDS: SODIUM CHLORIDE 1,000 ML IV SCH ×3 (05:31→22:25)
[2017-07-22] MEDS: CALMOSEPTINE OINTMENT TP SCH ×2 (08:21→21:27)
[2017-07-22] MEDS ORDERED: XOPENEX 0.63 MG NEB SCH (09:00)
[2017-07-22] MEDS ORDERED: ZITHROMAX 500 MG in SODIUM CHLORIDE 250 ML IV SCH (09:00)
[2017-07-22] MEDS: LOVENOX SUBCUT SCH (09:33)
[2017-07-22] MEDS: NAMENDA PO SCH (09:34)
[2017-07-22] MEDS: ZESTRIL PO SCH (09:34)
[2017-07-22] MEDS: LACTULOSE PO SCH (09:34)
[2017-07-22] MEDS: ARICEPT PO SCH (09:35)
[2017-07-22] MEDS: NORVASC PO SCH (09:35)
[2017-07-22] MEDS: CARDIZEM CD PO SCH (09:35)
[2017-07-22] MEDS: AVELOX PO SCH (17:35)
[2017-07-22] MEDS ORDERED: ROCEPHIN 1 GM in SODIUM CHLORIDE 50 ML IV SCH (21:00)
[2017-07-23] MEDS: XOPENEX 0.63 MG NEB SCH ×3 (04:56→22:50)
[2017-07-23] MEDS: AVELOX PO SCH (05:52)
[2017-07-23] MEDS: ZESTRIL PO SCH (08:45)
[2017-07-23] MEDS: LOVENOX SUBCUT SCH (08:45)
[2017-07-23] MEDS: NAMENDA PO SCH (08:45)
[2017-07-23] MEDS: LACTULOSE PO SCH (08:45)
[2017-07-23] MEDS: CARDIZEM CD PO SCH (08:45)
[2017-07-23] MEDS: NORVASC PO SCH (08:45)
[2017-07-23] MEDS: ARICEPT PO SCH (08:45)
[2017-07-23] MEDS: CALMOSEPTINE OINTMENT TP SCH ×2 (08:54→20:55)
[2017-07-23] MEDS: SODIUM CHLORIDE 1,000 ML IV SCH (11:59)
[2017-07-24] MEDS: XOPENEX 0.63 MG NEB SCH ×3 (05:12→20:59)
[2017-07-24] MEDS: AVELOX PO SCH (05:48)
--- NOTE | 2017-07-24 08:38 | RS.PTINEVL ---
Subjective - Patient information Date of Evaluation: 07/23/17 Date of Arrival on Unit: 07/21/17 Admitted From:: Home Diagnosis: pneumonia, dementia, pressure ulcer Usual Living Arrangement: With Others Living Arrangement Comments: Lives with son and a sitter. Home Environment: House, Level/No stairs Medical History: Hypertension, CVA/TIA Medical History Comments:: GERD, Afib, bronchitis, cardiomegaly LATEX ALLERGY?: No Surgical History: Cholecystectomy Subjective Information/ Patient Comments:: pt states that "I can't walk, my legs don't work." - Level of function Prior to this admission, the patient could do the following:: Partially Dependent Ambulation Abilities prior to this admission: pt lives with son and has a paid caregiver. Current Equipment Used at Home: Rolling walker Interventions - Objective Patient Orientation: Person, Place Current Interventions: IV's, Oxygen, Telemetry Observation: edema BLE Range of Motion - ROM Right Upper Extremity AROM: Slight limitation (shld flex limited due to previous injury) Left Upper Extremity AROM: Slight limitation (shld flex limited due to previous injury) Right Lower Extremity AROM: WFL's Left Lower Extremity AROM: WFL's Muscle Strength - Muscle Strength Right Upper Extremity Strength: Mild Weakness (shld flex 3-/5, elbow flex/ext 3+ /5,) Left Upper Extremity Strength: Mild Weakness (shld flex 3-/5, elbow flex/ext 3+/ 5,) Right Lower Extremity Strength: Mild Weakness (hip flex 3/5 knee flex/ext 4-/5, ankle Df/PF 3+/5) Left Lower Extremity Strength: Mild Weakness (hip flex 3/5 knee flex/ext 4-/5, ankle Df/PF 3+/5) Sensation - Sensation Right Upper Extremity Sensation: Intact/Normal Left Upper Extremity Sensation: Intact/Normal Right Lower Extremity Sensation: Intact/Normal Left Lower Extremity Sensation: Intact/Normal Balance - Sitting Balance and Reactions Static Sitting Balance: Poor Dynamic Sitting Balance: Poor Sitting Equilibrium Reactions: Delayed Left, Delayed Right Sitting Protective Reactions: Delayed Left, Delayed Right - Standing Balance and Reactions Static Standing Balance: Poor Dynamic Standing Balance: Poor Standing Equilibrium Reactions: Delayed Left, Delayed Right Standing Protective Reactions: Delayed Left, Delayed Right - Comments Balance Assessment Comments: pt unable to maintain sitting balance without min assist, pt requires min to mod assist to maintain standing. Functional Mobility - Bed Mobility Rolling R/L: Min Assist, Mod Assist, 1 person assist Scooting: Max Assist, 2 person assist Supine to Sit: Mod Assist Sit to Supine: Mod Assist, Max Assist - Transfers Sit to Stand: Mod Assist Stand to Sit: Mod Assist Comments:: pt unable to take steps due to weakness. pt stood approx 1-2 mins with min to mod x 2. - Safety Awareness Safety Awareness: Poor Treatment time - Time with patient Total treatment time: 32 Patient Education - Education Patient Education: Education of Plan of Care Teaching Recipient: Patient Teaching Methods: Discussion Assessment - Assessment Problem List:: Decreased level of function, Requires training/education, Decreased safety/Risk of falls, Weakness, Cognitive status limits abilities Rehab Potential: Good Further Therapy Indicated?: Yes Short Term Goals GOAL #1: pt demonstrate rolling and scooting in bed with min assist. Goal to be met by: 07/27/17 GOAL #2: pt transfer sup to/from sit to/from stand with min to mod x 1 Goal to be met by: 07/27/17 GOAL #3: pt amb 50ft with AAD with min x 2 with no LOB. Goal to be met by: 07/27/17 Usp Goals GOAL #1: pt transfer sup to/from sit to/from stand CGA to min x 1 Goal to be met by: 07/30/17 GOAL #2: pt amb with AAD 100ft with min x 1 Goal to be met by: 07/30/17 GOAL #3: pt demonstrate improved strength BLE 4- to 4/5 Goal to be met by: 07/30/17 Plan Plan of Care: Therapeutic EX, Neuromuscular Re-Educ, Therapeutic Activity, Self- Care/Home Management Other:: gait training Frequency of Treatment: 1-2 X day, as tolerated Duration of Treatment: 6 days Anticipated Discharge Destination: Home Has the Physician been added for Co-signature?: Yes
[2017-07-24] MEDS: ZESTRIL PO SCH (09:53)
[2017-07-24] MEDS: NAMENDA PO SCH (09:53)
[2017-07-24] MEDS: ULTRAM PO PRN (09:53)
[2017-07-24] MEDS: CARDIZEM CD PO SCH (09:53)
[2017-07-24] MEDS: ARICEPT PO SCH (09:53)
[2017-07-24] MEDS: LACTULOSE PO SCH (09:53)
[2017-07-24] MEDS: CALMOSEPTINE OINTMENT TP SCH ×2 (09:54→21:20)
[2017-07-24] MEDS: LOVENOX SUBCUT SCH (09:54)
--- NOTE | 2017-07-24 11:34 | RS.OTINEVL ---
Subjective - Patient information Date of Evaluation: 07/24/17 Date of Arrival on Unit: 07/21/17 Admitted From:: Home Diagnosis: Muscle weakness Usual Living Arrangement: With Others Living Arrangement Comments: Lives with son and a sitter. Home Environment: House, Level/No stairs Medical History: Hypertension, CVA/TIA Medical History Comments:: GERD, Afib, bronchitis, cardiomegaly LATEX ALLERGY?: No Surgical History: Cholecystectomy Surgical History Comments:: Appendix, gallbladder removed, heart catheter, cholecystectomy, hernia Subjective Information/ Patient Comments:: "I need to get to the hospital." "Where am I?" "Don't leave me." - Level of function Prior to this admission, the patient could do the following:: Partially Dependent Ambulation Abilities prior to this admission: Pt was living at home with son. Pt was receiving help from family for cooking, bathing, dressing, and self care. Current Level of Function: Partially Dependent Current Equipment Used at Home: Rolling walker Pain Assessment - Pain Pain Score: 0 Interventions - Objective Patient Orientation: Person Current Interventions: IV's, Oxygen Observation: Pt is confused and short of breath. His O2 level is 94%.Pt is maximum assistance for ambulation with a RW. Interventions - ROM Right Upper Extremity AROM: Slight limitation Left Upper Extremity AROM: Slight limitation - Strength Right Upper Extremity Strength: Mild Weakness Left Upper Extremity Strength: Mild Weakness - Sensation Right Upper Extremity Sensation: Intact/Normal Left Upper Extremity Sensation: Intact/Normal Balance - Sitting Balance Static Sitting Balance: Poor Dynamic Sitting Balance: Poor - Standing Balance Static Standing Balance: Poor Dynamic Standing Balance: Poor ADL Skills - Self Feeding Self Feeding: Set Up Only - Grooming Grooming: Mod Assist - Bathing Bathing UE: Mod Assist Bathing LE: Max Assist - Dressing Dressing UE: Mod Assist Dressing LE: Max Assist - Toilet Management Toileting Management: Max Assist, 2 person assist Functional Mobility - Bed Mobility Rolling R/L: Mod Assist Scooting: Max Assist Supine to Sit: Mod Assist Sit to Supine: Mod Assist - Transfers Sit to Stand: Max Assist, 2 person assist Stand to Sit: Max Assist, 2 person assist Stand Pivot Transfers: Max Assist, 2 person assist - Ambulation Weight Bearing Status: FWB Assistive Device Used: Rolling Walker Assistance needed with Ambulation: Max Assist, 2 person assist - Safety Awareness Safety Awareness: Good Additional Treatment Performed - Time with patient Total treatment time: 23 Activities Patient Interests:: Watching Television, Visiting/Socializing Patient Education Patient Education: Education of diagnosis, Home Exercise Program, Home Safety, Education of Plan of Care Teaching Recipient: Patient Teaching Methods: Discussion Assessment Problem List:: Decreased level of function, Requires training/education, Decreased safety/Risk of falls, Weakness, Cognitive status limits abilities Rehab Potential: Good Further Therapy Indicated?: Yes Short Term Goals - Goals GOAL 1: Pt to tolerate 20 minutes of activity with rests PRN. Goal to be met by: 07/31/17 GOAL 2: Pt to increase BUE strength to 4/5. Goal to be met by: 07/31/17 GOAL 3: Pt to improve functional transfers to Moderate assistance. Goal to be met by: 07/31/17 Snf Goals GOAL 1: Pt to tolerate 25 minutes of activity with rests PRN. Goal to be met by: 08/07/17 GOAL 2: Pt to increase BUE strength to 4+/5. Goal to be met by: 08/07/17 GOAL 3: Pt to improve functional transfers to Minimal assistance. Goal to be met by: 08/07/17 Plan Plan of Care: Therapeutic EX, Neuromuscular Re-Educ, Therapeutic Activity, Self- Care/Home Management Frequency of Treatment: 1-2 X day, as tolerated Duration of Treatment: 2 Weeks Anticipated Discharge Destination: Home Has the Physician been added for Co-signature?: Yes
[2017-07-24] MEDS ORDERED: NON-FORMULARY MEDICATION IM SCH (13:30)
[2017-07-24] MEDS: SODIUM CHLORIDE 1,000 ML IV SCH ×2 (15:22)
--- NOTE | 2017-07-24 15:54 | CONS ---
DATE OF SERVICE: 07/23/17 CONSULT FOLLOWUP SUBJECTIVE: 82 year old white male seen on consult for abnormal CK and Troponin. The patient has abnormal liver functions. Likely the patient has abnormality of CK and Troponin from other sources other than myocardial muscle. The patient's EKG' s are unchanged with atrial fibrillation. The patient had no sweating, no chest pain, no PND and no Orthopnea. REVIEW OF SYSTEMS: CONSTITUTIONAL: No night sweats. No fatigue, malaise, lethargy. No fever or chills. HEENT: Eyes: No visual changes. No eye pain. No eye discharge. ENT: No runny nose. No epistaxis. No sinus pain. No sore throat. No odynophagia. No ear pain. No congestion. RESPIRATORY: No cough, no congestion. No hemoptysis. CARDIOVASCULAR: No angina symptoms. No CHF symptoms. No atypical chest pain for CAD. No palpitations. No shortness of breath. GASTROINTESTINAL: No abdominal pain. No nausea or vomiting. No diarrhea or constipation. No hematemesis. No hematochezia. GENITOURINARY: No urgency. No frequency. No dysuria. No hematuria. No obstructive symptoms. No discharge. No pain. No significant abnormal bleeding. MUSCULOSKELETAL: No musculoskeletal pain. No joint swelling. No arthritis. NEUROLOGICAL: No headache. No neck pain. No syncope. No seizures. No dizziness. PSYCHIATRIC: Not anxious. No depression. No suicidal thoughts. No homicidal thoughts. SKIN: No rash. No lesions. No wounds. ENDOCRINE: No unexplained weight loss. No weight gain. HEMATOLOGIC/LYMPHATIC: No anemia. No purpura. No petechiae. No prolonged or excessive bleeding. No palpable lymph nodes. PHYSICAL EXAMINATION: HEENT: Head normocephalic, atraumatic. Eyes: Extraocular muscles are intact. Pupils are equal, round and reactive to light and accommodation. Ears: No lesions. Nose appeared normal. Throat: No exudate or erythema. NECK: Supple. No JVD, no carotid bruit. No lymphadenopathy or thyromegaly. LUNGS: Decreased breath sounds but clear to auscultation. Percussion note normal. Chest symmetrical. HEART: S1, S2, no S3. No murmurs. No cyanosis or clubbing. No ascites. Pulses: Dorsalis pedis and posterior tibial pulses +1 to +2 both sides. ABDOMEN: Soft. Nontender. Bowel sounds active. No CVA tenderness. No mass felt. EXTREMITIES: No edema. Full range of motion of all extremities, equal. NEUROLOGIC: No focal deficit. Cranial nerves II through XII are grossly intact. No headache, no double vision or headache. SKIN: Not dry. Intact. Turgor - normal. LYMPHATIC: No palpable lymph nodes/no lymphedema. MUSCULOSKELETAL: Normal joints with no swelling. Muscle tone is normal. Cardiac status is stable ASSESSMENT: 1. PNEUMONIA RECOMMENDATIONS: 1. Continue the same management CONDITION: Stable MTDD
[2017-07-25] MEDS: SODIUM CHLORIDE 1,000 ML IV SCH ×2 (02:28→07:30)
[2017-07-25] MEDS: XOPENEX 0.63 MG NEB SCH ×2 (05:25→14:12)
[2017-07-25] MEDS: AVELOX PO SCH (05:39)
[2017-07-25] MEDS: LOVENOX SUBCUT SCH (09:08)
[2017-07-25] MEDS: LACTULOSE PO SCH (09:08)
[2017-07-25] MEDS: NAMENDA PO SCH (09:09)
[2017-07-25] MEDS: CARDIZEM CD PO SCH (09:09)
[2017-07-25] MEDS: ARICEPT PO SCH (09:09)
[2017-07-25] MEDS: ZESTRIL PO SCH (09:09)
[2017-07-25] MEDS: CALMOSEPTINE OINTMENT TP SCH ×2 (09:09→20:26)
[2017-07-25] MEDS ORDERED: SOLU-CORTEF 250 MG IVP STA (12:13)
[2017-07-25] MEDS ORDERED: ALBUTEROL 0.083% NEB NEB STA (12:13)
[2017-07-25] MEDS ORDERED: LASIX IVP STA (12:14)
--- NOTE | 2017-07-25 12:15 | DI ---
Exam: Single x-ray of the chest. Comparison: CT chest performed 07/21/2017. Reason for exam: Short of air with cough. FINDINGS: No pneumothorax. Developing air space opacities are seen in both lung bases with bilatera l pleural effusions. There is obscuration of the left heart border and left hemidiaphragm. Impression: Bilateral pleural effusions with bibasilar atelectasis or pneumonia.
[2017-07-25] MEDS ORDERED: ALBUTEROL 0.083% NEB NEB ONE (12:29)
[2017-07-25] MEDS ORDERED: NON-FORMULARY MEDICATION IM SCH (13:30)
[2017-07-25] MEDS ORDERED: TESTOSTERONE CYPIONATE IM ONE (14:30)
[2017-07-25] MEDS ORDERED: TESTOSTERONE CYPIONATE IM SCH (14:30)
[2017-07-25] MEDS: TESTOSTERONE CYPIONATE IM SCH (17:42)
[2017-07-25] MEDS: XOPENEX 1.25 MG NEB SCH (22:52)
[2017-07-26] MEDS: XOPENEX 1.25 MG NEB SCH ×3 (04:40→22:06)
[2017-07-26] MEDS: AVELOX PO SCH (05:30)
[2017-07-26] MEDS: ULTRAM PO PRN (06:16)
[2017-07-26] MEDS: CALMOSEPTINE OINTMENT TP SCH ×2 (08:39→22:01)
[2017-07-26] MEDS: NAMENDA PO SCH (08:40)
[2017-07-26] MEDS: CARDIZEM CD PO SCH (08:41)
[2017-07-26] MEDS: LACTULOSE PO SCH (08:41)
[2017-07-26] MEDS: ZESTRIL PO SCH (08:41)
[2017-07-26] MEDS: LOVENOX SUBCUT SCH (08:42)
[2017-07-26] MEDS: TESTOSTERONE CYPIONATE IM SCH (08:44)
[2017-07-26] MEDS: SOLU-MEDROL 125 MG IVP SCH ×2 (08:57→22:11)
--- NOTE | 2017-07-26 09:12 | PCM.PROG ---
Attending Provider: ATTENDING PROVIDER: [facility] This patient is seen with Va Harden, Nurse Practitioner. DATE OF SERVICE: 07/26/17 SUBJECTIVE: This 82 year old WHITE/ M was hospitalized 07/21/17. Alert, lying in bed. On Venturi Mask at 40. The patient is confused. REVIEW OF SYSTEMS: CONSTITUTIONAL: No night sweats. No fatigue, malaise, lethargy. No fever or chills. HEENT: Eyes: No visual changes. No eye pain. No eye discharge. ENT: No runny nose. No epistaxis. No sinus pain. No odynophagia. No congestion. RESPIRATORY: Cough, no congestion. No hemoptysis. Shortness of breath. CARDIOVASCULAR: No angina symptoms. No CHF symptoms. No atypical chest pain for CAD. No palpitations. No orthopnea.. GASTROINTESTINAL: No abdominal pain. No nausea or vomiting. No diarrhea or constipation. No hematemesis. No hematochezia. GENITOURINARY: No urgency. No frequency. No dysuria. No hematuria. No obstructive symptoms. No discharge. No pain. No significant abnormal bleeding. MUSCULOSKELETAL: No musculoskeletal pain; no joint swelling. NEUROLOGICAL: Awake, alert, oriented to time, place and person. No headache. No neck pain. No syncope. No seizures. No dizziness. PSYCHIATRIC: Not anxious. No depression. No suicidal thoughts. No homicidal thoughts. SKIN: No rash. No lesions. No wounds. ENDOCRINE: No unexplained weight loss. No weight gain. HEMATOLOGIC/LYMPHATIC: No anemia. No purpura. No petechiae. No prolonged or excessive bleeding. No palpable lymph nodes. PHYSICAL EXAMINATION: GENERAL: The patient is awake, alert and confused, lying in bed in no distress. VITAL SIGNS: Temperature 98.8 F, Pulse 86, Respiratory Rate 16, BP 134/85, Pulse Ox 96% HEENT: Head normocephalic, atraumatic. Eyes: Extraocular muscles are intact. Pupils are equal, round and reactive to light and accommodation. Ears: No lesions. Nose appeared normal. Throat: No exudate or erythema. NECK: Supple. No JVD, no carotid bruit. No lymphadenopathy or thyromegaly. LUNGS: Diminished breath sounds bilaterally. Clear to auscultation. Percussion note normal. Chest symmetrical. HEART: S1, S2, no S3. No murmurs. No cyanosis or clubbing. No ascites. Pulses: Dorsalis pedis and posterior tibial pulses +1 to +2 both sides. Irregular heart rate consistent with atrial fibrillation. ABDOMEN: Soft. Non-tender. Bowel sounds active. No CVA tenderness. No mass felt. EXTREMITIES: No edema. Full range of motion of all extremities, equal. NEUROLOGIC: No focal deficit. Cranial nerves II through XII are grossly intact. No headache, no double vision or headache. SKIN: Not dry. Intact. Turgor-normal. LYMPHATIC: No palpable lymph nodes/no lymphedema. MUSCULOSKELETAL: Normal joints with no swelling. Muscle tone is normal. LAB REVIEW: 07/23/17 04:58 07/23/17 04:58 07/25/17 11:24: B-Natriuretic Peptide [id number] H ASSESSMENT: Please see below. Bibasilar Pneumonia Shortness of breath Dementia Bilateral pleural effusion PLAN: Solu-Medrol 100mg Q 12 HOURS. CBC and CMP today Plan and coordination of the patient's care discussed in the presence of [employer]ney Builder Helper and nurse. SCRIBED BY: Rocky KAPLAN scribed while in presence of service performed by Dr. Patricio/Va Harden APRN on 07/26/17 ([id number])
--- NOTE | 2017-07-26 12:01 | CONS ---
DATE OF SERVICE: 07/22/17 CONSULT FOLLOWUP SUBJECTIVE: 82 year old white male seen on consult because of abnormal markers. The patient was admitted with pneumonia and atrial fibrillation. The patient's EKG was reviewed which showed atrial fibrillation with normal ventricular response. No acute changes notes times two. The patient has cardiovascular status with no symptoms of CHF or coronary insufficiency. REVIEW OF SYSTEMS: CONSTITUTIONAL: No night sweats. No fatigue, malaise, lethargy. No fever or chills. HEENT: Eyes: No visual changes. No eye pain. No eye discharge. ENT: No runny nose. No epistaxis. No sinus pain. No sore throat. No odynophagia. No ear pain. No congestion. RESPIRATORY: No cough, no congestion. No hemoptysis. CARDIOVASCULAR: No angina symptoms. No CHF symptoms. No atypical chest pain for CAD. No palpitations. No shortness of breath. GASTROINTESTINAL: No abdominal pain. No nausea or vomiting. No diarrhea or constipation. No hematemesis. No hematochezia. GENITOURINARY: No urgency. No frequency. No dysuria. No hematuria. No obstructive symptoms. No discharge. No pain. No significant abnormal bleeding. MUSCULOSKELETAL: No musculoskeletal pain. No joint swelling. No arthritis. NEUROLOGICAL: No headache. No neck pain. No syncope. No seizures. No dizziness. PSYCHIATRIC: Not anxious. No depression. No suicidal thoughts. No homicidal thoughts. SKIN: No rash. No lesions. No wounds. ENDOCRINE: No unexplained weight loss. No weight gain. HEMATOLOGIC/LYMPHATIC: No anemia. No purpura. No petechiae. No prolonged or excessive bleeding. No palpable lymph nodes. PHYSICAL EXAMINATION: GENERAL: The patient is confused but alert. VITAL SIGNS: Temperature 97.5, pulse 63, respiratory rate 20, blood pressure 107 /65 and pulse ox 96%. HEENT: Head normocephalic, atraumatic. Eyes: Extraocular muscles are intact. Pupils are equal, round and reactive to light and accommodation. Ears: No lesions. Nose appeared normal. Throat: No exudate or erythema. NECK: Supple. No JVD, no carotid bruit. No lymphadenopathy or thyromegaly. LUNGS: Decreased breath sounds but clear to auscultation. Percussion note normal. Chest symmetrical. HEART: S1, S2, no S3. No murmurs. No cyanosis or clubbing. No ascites. Pulses: Dorsalis pedis and posterior tibial pulses +1 to +2 both sides. ABDOMEN: Soft. Nontender. Bowel sounds active. No CVA tenderness. No mass felt. EXTREMITIES: No edema. Full range of motion of all extremities, equal. NEUROLOGIC: No focal deficit. Cranial nerves II through XII are grossly intact. No headache, no double vision or headache. SKIN: Not dry. Intact. Turgor - normal. LYMPHATIC: No palpable lymph nodes/no lymphedema. MUSCULOSKELETAL: Normal joints with no swelling. Muscle tone is normal. ASSESSMENT: 1. Abnormal cardiac markers, borderline. I don't think that patient has acute ND or ischemia or coronary insufficiency. 2. Atrial fibrillation has normal ventricular response 3. Pneumonia, being treated with IV antibiotics 4. Chronic kidney disease seems to have worsened from dehydration making the BUN go up. RECOMMENDATIONS: 1. Agreed with present management with treatment of pneumonia 2. Continue to monitor telemetry 3. Will check on echocardiogram and when was it done last to evaluate LV function 4. Will continue follow. Thanks for referral. ELKE
--- NOTE | 2017-07-26 13:46 | US ---
EXAM: Ultrasound abdomen limited. HISTORY: Abnormal liver function tests. COMPARISON: CT 07/21/2017. TECHNIQUE: Abdominal, real time with image documentation: limited (eg, single organ, quadrant, foll ow-up) FINDINGS: The liver demonstrates a subtle nodular surface contour. Slight coarsening of the echotex ture pattern noted. There is no intrahepatic biliary dilatation. Portal venous flow is normal in di rection. The gallbladder is absent. Common duct measures approximately 0.6 cm. Visualized portions of the pancreas are unremarkable. IMPRESSION: Possible cirrhosis.
[2017-07-26] MEDS ORDERED: LOVENOX SUBCUT SCH ×2 (14:15→14:30)
[2017-07-26] MEDS: K-DUR PO SCH (14:21)
[2017-07-26] MEDS: ROCEPHIN 1 GM in SODIUM CHLORIDE 50 ML IV SCH (14:22)
[2017-07-27] MEDS: ULTRAM PO PRN ×2 (02:38→12:51)
[2017-07-27] MEDS: XOPENEX 1.25 MG NEB SCH ×3 (04:38→21:25)
[2017-07-27] MEDS: AVELOX PO SCH (06:07)
--- NOTE | 2017-07-27 09:02 | PCM.PROG ---
Attending Provider: ATTENDING PROVIDER: Dr. CORTES [facility]BRYN [facility] This patient is seen with Va Harden, Nurse Practitioner. DATE OF SERVICE: 07/27/17 SUBJECTIVE: This 82 year old WHITE/ M was hospitalized 07/21/17. The patient is resting comfortable in bed. Down to 4 liters on nasal cannula. REVIEW OF SYSTEMS: CONSTITUTIONAL: No night sweats. No fatigue, malaise, lethargy. No fever or chills. Weakness. HEENT: Eyes: No visual changes. No eye pain. No eye discharge. ENT: No runny nose. No epistaxis. No sinus pain. No odynophagia. No congestion. RESPIRATORY: No cough, no congestion. No hemoptysis. Improving shortness of breath. CARDIOVASCULAR: No angina symptoms. No CHF symptoms. No atypical chest pain for CAD. No palpitations. No orthopnea.. GASTROINTESTINAL: No abdominal pain. No nausea or vomiting. No diarrhea or constipation. No hematemesis. No hematochezia. GENITOURINARY: No urgency. No frequency. No dysuria. No hematuria. No obstructive symptoms. No discharge. No pain. No significant abnormal bleeding. MUSCULOSKELETAL: No musculoskeletal pain; no joint swelling. NEUROLOGICAL: Awake, alert,confusion. No headache. No neck pain. No syncope. No seizures. No dizziness. PSYCHIATRIC: Not anxious. No depression. No suicidal thoughts. No homicidal thoughts. SKIN: No rash. No lesions. No wounds. ENDOCRINE: No unexplained weight loss. No weight gain. HEMATOLOGIC/LYMPHATIC: No anemia. No purpura. No petechiae. No prolonged or excessive bleeding. No palpable lymph nodes. PHYSICAL EXAMINATION: GENERAL: The patient is awake, alert and oriented, lying in bed in no distress. VITAL SIGNS: Temperature 97.0 F, Pulse 73, Respiratory Rate 16, BP 118/60, Pulse Ox 99% HEENT: Head normocephalic, atraumatic. Eyes: Extraocular muscles are intact. Pupils are equal, round and reactive to light and accommodation. Ears: No lesions. Nose appeared normal. Throat: No exudate or erythema. NECK: Supple. No JVD, no carotid bruit. No lymphadenopathy or thyromegaly. LUNGS: Diminished breath sounds. Clear to auscultation. Percussion note normal. Chest symmetrical. HEART: S1, S2, no S3. Irregular heart rate. No murmurs. No cyanosis or clubbing. No ascites. Pulses: Dorsalis pedis and posterior tibial pulses +1 to +2 both sides. ABDOMEN: Soft. Non-tender. Bowel sounds active. No CVA tenderness. No mass felt. EXTREMITIES: No edema. Full range of motion of all extremities, equal. NEUROLOGIC: No focal deficit. Cranial nerves II through XII are grossly intact. No headache, no double vision or headache. SKIN: Not dry. Intact. Turgor-normal. LYMPHATIC: No palpable lymph nodes/no lymphedema. MUSCULOSKELETAL: Normal joints with no swelling. Muscle tone is normal. LAB REVIEW: 07/26/17 08:50 07/26/17 08:50 07/26/17 11:50: Ammonia 23 07/26/17 11:50: PT 11.8 H, INR 1.17, APTT 30.7 07/26/17 08:50: Hepatitis A IgM Ab Negative, Hep Bs Antigen Negative, Hep B Core IgM Ab Negative, Hep C Ab Signal/Cutoff < 0.1 07/26/17 08:50: Sodium 148 H, Potassium 3.3 L, Chloride 115 H, Carbon Dioxide 26 , Anion Gap 10.3, BUN 19 H, Creatinine 0.88, Estimated GFR (MDRD) 83.00, BUN/ Creatinine Ratio 21.59, Glucose 110, Calcium 8.8, Total Bilirubin 0.6, AST 86 H , ALT 323 H, Alkaline Phosphatase 95, Total Protein 5.9, Albumin 2.9 L, Globulin 3.0, Albumin/Globulin Ratio 0.97 07/26/17 08:50: WBC 13.18 H, RBC 4.21 L, Hgb 12.2 L, Hct 38.7 L, MCV 91.9, MCH 29.0, MCHC 31.5 L, RDW Coeff of Dennys 16.5 H, Plt Count 168, Immature Gran % (Auto ) 0.7, Neut % (Auto) 83.6, Lymph % (Auto) 8.2 L, Pettis % (Auto) 7.4, Eos % (Auto ) 0.0, Baso % (Auto) 0.1, Immature Gran # (Auto) 0.1, Neut # 11.0 H, Lymph # 1.1 , Pettis # 1.0, Eos # 0.0, Baso # 0.0 ASSESSMENT: Please see below. Bibasilar pneumonia Shortness of breath Dementia Bilateral pleural effusion Questionable Cirrhosis PLAN: CBC and CMP Ammonia level pending In recent months fall with questionable intracranial bleed previously, thought to not be a candidate for blood thinners regarding atrial fibrillation. Plan and coordination of the patient's care discussed in the presence of Home Mission Worker and nurse. SCRIBED BY: JASMYN LEZAMA Publicity Writer scribed while in presence of service performed by Dr. Patricio/Va Harden APRN on 07/27/17 ([id number])
[2017-07-27] MEDS: ROCEPHIN 1 GM in SODIUM CHLORIDE 50 ML IV SCH (09:34)
[2017-07-27] MEDS: K-DUR PO SCH (09:35)
[2017-07-27] MEDS: SOLU-MEDROL 125 MG IVP SCH ×2 (09:35→20:25)
[2017-07-27] MEDS: CARDIZEM CD PO SCH (09:35)
[2017-07-27] MEDS: LACTULOSE PO SCH (09:35)
[2017-07-27] MEDS: ZESTRIL PO SCH (09:35)
[2017-07-27] MEDS: NAMENDA PO SCH (09:36)
[2017-07-27] MEDS: CALMOSEPTINE OINTMENT TP SCH ×2 (09:36→20:26)
[2017-07-27] MEDS: LOVENOX SUBCUT SCH (09:36)
[2017-07-27] MEDS ORDERED: ATIVAN PO STA (21:57)
[2017-07-27] MEDS ORDERED: ATIVAN ONE (22:02)
[2017-07-28] MEDS ORDERED: LANOXIN IVP STA ×2 (04:53)
[2017-07-28] MEDS ORDERED: LANOXIN ONE (04:57)
[2017-07-28] MEDS: XOPENEX 1.25 MG NEB SCH ×3 (05:15→20:05)
[2017-07-28] MEDS: AVELOX PO SCH (06:08)
[2017-07-28] MEDS: K-DUR PO SCH (14:08)
[2017-07-28] MEDS: CARDIZEM CD PO SCH (14:09)
[2017-07-28] MEDS: NAMENDA PO SCH (14:09)
[2017-07-28] MEDS: ZESTRIL PO SCH (14:10)
[2017-07-28] MEDS: LACTULOSE PO SCH (14:11)
[2017-07-28] MEDS: LOVENOX SUBCUT SCH (14:13)
[2017-07-28] MEDS: ROCEPHIN 1 GM in SODIUM CHLORIDE 50 ML IV SCH (14:14)
[2017-07-28] MEDS: CALMOSEPTINE OINTMENT TP SCH ×2 (14:20→21:40)
[2017-07-28] MEDS: SOLU-MEDROL 125 MG IVP SCH ×2 (17:04→21:39)
[2017-07-29] MEDS: HALDOL IM PRN (00:46)
[2017-07-29] MEDS: XOPENEX 1.25 MG NEB SCH ×3 (05:03→19:43)
[2017-07-29] MEDS: AVELOX PO SCH (06:06)
[2017-07-29] MEDS: K-DUR PO SCH (09:15)
[2017-07-29] MEDS: LACTULOSE PO SCH (09:15)
[2017-07-29] MEDS: CARDIZEM CD PO SCH (09:15)
[2017-07-29] MEDS: ROCEPHIN 1 GM in SODIUM CHLORIDE 50 ML IV SCH (09:15)
[2017-07-29] MEDS: CALMOSEPTINE OINTMENT TP SCH ×2 (09:16→21:09)
[2017-07-29] MEDS: NAMENDA PO SCH (09:16)
[2017-07-29] MEDS: LOVENOX SUBCUT SCH (09:16)
[2017-07-29] MEDS: ZESTRIL PO SCH (09:17)
[2017-07-29] MEDS: SOLU-MEDROL 125 MG IVP SCH ×2 (09:17→21:09)
[2017-07-29] MEDS: TORADOL IVP SCH ×2 (12:17→21:09)
[2017-07-29] MEDS: NUBAIN IVP PRN (14:41)
[2017-07-29] MEDS: PYRIDIUM PO SCH ×2 (14:42→21:08)
[2017-07-29] MEDS ORDERED: NYSTATIN ORAL SUSP ONE (20:26)
[2017-07-29] MEDS: NYSTATIN ORAL SUSP PO SCH (21:10)
[2017-07-30] MEDS: HALDOL IM PRN (01:14)
[2017-07-30] MEDS: NUBAIN IVP PRN (03:03)
[2017-07-30] MEDS: XOPENEX 1.25 MG NEB SCH ×3 (04:21→23:18)
[2017-07-30] MEDS: TORADOL IVP SCH ×3 (04:27→20:52)
[2017-07-30] MEDS: AVELOX PO SCH (06:20)
[2017-07-30] MEDS: NYSTATIN ORAL SUSP PO SCH ×4 (06:20→20:51)
[2017-07-30] MEDS: ZESTRIL PO SCH (10:13)
[2017-07-30] MEDS: SOLU-MEDROL 125 MG IVP SCH (10:13)
[2017-07-30] MEDS: CARDIZEM CD PO SCH (10:13)
[2017-07-30] MEDS: K-DUR PO SCH (10:13)
[2017-07-30] MEDS: NAMENDA PO SCH (10:13)
[2017-07-30] MEDS: ROCEPHIN 1 GM in SODIUM CHLORIDE 50 ML IV SCH (10:14)
[2017-07-30] MEDS: LOVENOX SUBCUT SCH (10:14)
[2017-07-30] MEDS: CALMOSEPTINE OINTMENT TP SCH ×2 (10:15→20:52)
[2017-07-30] MEDS: PYRIDIUM PO SCH ×3 (10:15→20:51)
[2017-07-30] MEDS: LACTULOSE PO SCH (10:50)
[2017-07-31] MEDS: NYSTATIN ORAL SUSP PO SCH ×2 (06:00→11:17)
[2017-07-31] MEDS: TORADOL IVP SCH (06:00)
[2017-07-31] MEDS: AVELOX PO SCH (06:00)
[2017-07-31] MEDS: XOPENEX 1.25 MG NEB SCH (06:28)
[2017-07-31] MEDS: LOVENOX SUBCUT SCH (09:23)
[2017-07-31] MEDS: CALMOSEPTINE OINTMENT TP SCH (09:23)
[2017-07-31] MEDS: NAMENDA PO SCH (09:24)
[2017-07-31] MEDS: LACTULOSE PO SCH (09:24)
[2017-07-31] MEDS: ZESTRIL PO SCH (09:24)
[2017-07-31] MEDS: PYRIDIUM PO SCH (09:28)
[2017-07-31] MEDS: CARDIZEM CD PO SCH (09:28)
[2017-07-31] MEDS: K-DUR PO SCH (09:28)
--- NOTE | 2017-07-31 09:59 | CONS ---
DATE OF SERVICE: 07/27/17 CONSULT FOLLOWUP SUBJECTIVE: 82 year old white male being seen because of positive cardiac markers. The patient's cardiovascular status is stable. He has bilateral pleural effusion from malnutrition, hypoproteinemia and generalized anasarca which is going to follow with his inactivity. The patient is demented which is getting worse. The patient is DNR. Yesterday the ECHO showed normal LV contractility with tricuspid regurgitation moderate to severe which could be contributing factor to edema. The patient has atrial fibrillation with normal ventricular response. PHYSICAL EXAMINATION: HEENT: Head normocephalic, atraumatic. Eyes: Extraocular muscles are intact. Pupils are equal, round and reactive to light and accommodation. Ears: No lesions. Nose appeared normal. Throat: No exudate or erythema. NECK: Supple. No JVD, no carotid bruit. No lymphadenopathy or thyromegaly. LUNGS:Decreased breath sounds but clear to auscultation. Percussion note normal. Chest symmetrical. HEART: S1, S2, no S3. No murmurs. No cyanosis or clubbing. No ascites. Pulses: Dorsalis pedis and posterior tibial pulses +1 to +2 both sides. ABDOMEN: Soft. Nontender. Bowel sounds active. No CVA tenderness. No mass felt. EXTREMITIES: No edema. Full range of motion of all extremities, equal. NEUROLOGIC: No focal deficit. Cranial nerves II through XII are grossly intact. No headache, no double vision or headache. SKIN: Not dry. Intact. Turgor - normal. LYMPHATIC: No palpable lymph nodes/no lymphedema. MUSCULOSKELETAL: Normal joints with no swelling. Muscle tone is normal. RECOMMENDATIONS: 1. The patient will be continued on steroids, antibiotics CONDITION: Stable PROGNOSIS: Poor The patient was seen and examined with Nurse Practitioner. ELKE
--- NOTE | 2017-07-31 10:23 | ECHO2D ---
Date of Exam: 07/26/17 Ordering Physician: CORTES JASSO Room #: 117 Reason for Echo: SOA, BLE EDEMA M-Mode Normal Adult Results LV Dimensions Normal Adult Results AoV Opening excursions >1.6 >1.6 LVEDD-base- 3.5-5.8 4.6 Ao root dimensions 2.0-3.7 3.4 LVESD-base- 3.1-4.6 L. Atrium dimensions 1.9-3.8 4.5 Post. Wall thickness 0.8-1.1 1.2 IV septum (thickness) 0.7-1.2 1.3 Post. Wall excursion 0.72-1.3 NORMAL Septal motion NORMAL Systolic motion R. Ventricular cavity 1.5-2.0 NORMAL LVEF 60% 64% Paradoxical septal wall motion NORMAL 2-D : NORMAL LEFT VENTRICULAR CONTRACTILITY--MITRAL VALVE PROLAPSE NOTED, NO EFFUSION, NO THROMBUS, ENLARGED LEFT ATRIAL CAVITY, NORMAL LEFT VENTRICLE SIZE COLOR FLOW: MODERATE TO SEVERE TRICUSPID REGURGITATION, MODERATE MITRAL REGURGITATION M-MODE: MV: MITRAL VALVE PROLAPSE AV: NORMAL TV: NORMAL PV: CHAMBER SIZE: ENLARGED LEFT ATRIAL CAVITY WALL MOTION: NORMAL PERICARDIUM: NORMAL INTERPRETATION: 1. LEFT VENTRICULAR HYPERTROPHY WITH ENLARGED LEFT ATRIAL CAVITY 2. NORMAL LEFT VENTRICULAR CONTRACTILITY 3. MITRAL VALVE PROLAPSE NOTED 4. MODERATE TO SEVERE TRICUSPID REGURGITATION, MODERATE REGURGITATION MTDD
[2017-07-31 10:42] VITALS: BP 110/50; TEMP 96.2
--- NOTE | 2017-07-31 10:52 | CONS ---
DATE OF SERVICE: 07/26/17 CONSULT FOLLOWUP SUBJECTIVE: The patient was seen today. The patient had episode of aspiration after his lunch yesterday. Got into respiratory distress. Today he has no distress and his oxygen saturation more than 90% but patient doesn't keep the oxygen on. He is demented and noncompliant. I talked to his brother who is power of commercial attorney for health, he has decided to put the patient on DNR. The patient also doesn't want any further measure to be done in case of cardio pulmonary arrest. The patient had an echocardiogram done which showed LVH, normal LV contractility and moderate to severe tricuspid regurgitation and moderate mitral regurgitation and enlarged LA cavity the patient is in atrial fibrillation with normal ventricular response. He does not have any evidence of CHF clinically. The patient is going to be undergoing CAT scan for evaluation of his abnormal liver function which seems to have improved. Bilateral pleural effusions seems to be coming from hypoproteinemia and malnutrition. The patient is not eating and living practically by himself. He has dementia and depends on step daughter. Overall the patient's prognosis is very poor. We will also give this patient some IV Solu-Cortef. The patient's problems discussed with the attending. Further plan discussed. ELKE
--- NOTE | 2017-07-31 13:44 | CONS ---
DATE OF SERVICE: 07/25/17 CONSULT FOLLOWUP SUBJECTIVE: The patient was seen for consult because of elevated markers. The patient also has elevated liver enzymes. I think the original cardiac markers being positive comes from GI tract. The patient's EKG shows atrial fibrillation with normal ventricular response with no acute changes times three. The patient does not have any symptoms of coronary insufficiency. We will also do echo to evaluate LV contractility. So far no evidence of acute NJ. Otherwise clinical as well as by EKG's the patient's condition it stable. PHYSICAL EXAMINATION: HEENT: Head normocephalic, atraumatic. Eyes: Extraocular muscles are intact. Pupils are equal, round and reactive to light and accommodation. Ears: No lesions. Nose appeared normal. Throat: No exudate or erythema. NECK: Supple. No JVD, no carotid bruit. No lymphadenopathy or thyromegaly. LUNGS: Clear to auscultation. Percussion note normal. Chest symmetrical. HEART: S1, S2, no S3. No murmurs. No cyanosis or clubbing. No ascites. Pulses: Dorsalis pedis and posterior tibial pulses +1 to +2 both sides. No evidence of CHF clinically as well as on physical exam. ABDOMEN: Soft. Nontender. Bowel sounds active. No CVA tenderness. No mass felt. EXTREMITIES: No edema. Full range of motion of all extremities, equal. NEUROLOGIC: No focal deficit. Cranial nerves II through XII are grossly intact. No headache, no double vision or headache. SKIN: Not dry. Intact. Turgor - normal. LYMPHATIC: No palpable lymph nodes/no lymphedema. MUSCULOSKELETAL: Normal joints with no swelling. Muscle tone is normal. CONDITION: Stable MTDD
--- NOTE | 2017-07-31 13:45 | CONS ---
The patient was seen three times: 07/22/17 07/23/17 07/25/17 ELKE
--- NOTE | 2017-08-02 13:54 | DS ---
DATE OF DISCHARGE: 07/31/17 PATIENT IDENTIFICATION: This 82-year-old male who was seen at the emergency room on 07/21/17 because of increasing weakness, cough and not eating or drinking. The patient had been in the longterm but urged his relatives that he needed to go home and he was home with help from a [id number]. The patient's condition however has deteriorated and he was then brought to the emergency room because of the above. CheSt CT in the emergency room showed bilateral infiltrate and consolidation consistent with pneumonia, both bases. He also had bilateral pleural effusion. The patient was responsive but looks ill. He has rales in both lung collins posteriorly. No wheezing. He also had CT of the head in the emergency room showing no acute intracranial problems. Diffuse cerebral atrophy. CT scan of the abdomen and pelvis showed cardiomegaly, pleural effusion, partially healed old left 10th and 11th rib fractures otherwise unremarkable. Blood cultures were obtained and remained negative and also negative up to 5 days. Clostridium difficile also was requested and was negative. The patient's CBC on admission showed slight leukocytosis and remained such until the day before his demise. Electrolytes were essentially normal. BUN 25, EGFR 81, blood sugar 135. AST and ALT were elevated. The CT scan seemed to indicate some cirrhosis accounting for the elevated AST and ALT. The hepatitis panel was negative including hepatitis C. The patient was given Haldol 2 mg intravascularly for agitation p.r.n. as well as Toradol 30 mg IV q.8hr. The patient had cardiac arrhythmia and was treated with Diltiazem. He did have atrial fibrillation. The patient was placed on Avelox intravenously 400 mg daily since 07/22/17. He also received Lovenox 50 mg subcutaneously daily. He was given Nubain also p.r.n. for pain 2 mg. The patient was seen by Dr. Patricio, Reporter, on consultation since admission. The patient on 07/25/17, had an episode of shortness of breath. This happened after eating. This might be secondary to aspiration. This patient, prior to the meal, was doing well. The lungs now has rales in both bases. No wheezing. The patient is placed on 40% Venturi Mask. The oxygen saturation is acceptable at 40 FI02. I had requested again for Dr. Patricio to see the patient. He was on consult initially on admission because of cardiac arrhythmia. The patient had previous dysphagia study which showed some problems. I requested one and it could not be done until after the holidays. The speech therapist is not in the hospital. The patient will then be given a full thickened liquid diet. He should be sitting when he is eating. The patient had improved. I met his younger brother, Jules, and I discussed with him about the DNR that was signed by Dustin. I asked him to sign that also since he is the POA. He told me that he will; just ask the nurse for the papers. The echocardiogram was done by Dr. Patricio and has no significant changes from the previous. Chest x-ray showed bilateral pleural effusion with bibasilar atelectasis or pneumonia on . The patient on 07/26/17 was alert, responsive. He is using a Venti mask at 40 and seemed to be comfortable. Dr. Patricio had given Solu-Medrol 100 mg q.12hr intravenously. The patient's condition had stabilized. His oxygen saturation had gradually been going down measuring 3 to 4L of nasal oxygen. The 02 saturation on 07/29/17 at 3L was 92%. It was 77% on room air. The patient sometimes would pull the cannula. The patient had 4L/nasal still has oxygen saturation below 90. His oxygen had been increased nasally. The last one was 5L/ min at 89 on 07/31/17 at 10 o'clock in the morning. The patient did eat a good breakfast. At 10 o'clock in the morning on 07/31/17, the patient's vital signs consisted of : Temperature 96.2, pulse 68, BP 110/50, respiratory rate 22, oxygen saturation 89 on 5L. The patient was noted to be alert and confused, which he always was from time to time. The patient's condition had deteriorated and respiratory rate was very slow as well as his cardiac rate. I did come to see him and at that time he already had . There was no respiratory rate, no heart tones and no carotid pulses. The patient was pronouced at 1:17 p.m. 07/31/17. FINAL DIAGNOSES: 1. BILATERAL PNEUMONITIS, PROBABLY ASPIRATION 2. HYPOXEMIA PROGRESSIVE SECONDARY TO #1 3. CARDIAC ARRHYTHMIA 4. SENILE DEMENTIA 5. HYPOGONADISM, SERUM TESTOSTERONE LEVEL TOTAL VERY LOW 6. HEPATITIS, ELEVATED AST AND ALT PROBABLY SECONDARY TO CIRRHOSIS 7. NEGATIVE HEPATITIS PANEL FOR A, B AND C CAUSE OF : 1. BILATERAL PNEUMONITIS 2. RESPIRATORY FAILURE SECONDARY TO #1 MTDD
--- NOTE | 2017-08-02 14:15 | PN ---
DATE OF VISIT: 07/22/17 The patient was arousable and alert. He was not dyspneic, nor tachypneic. VITAL SIGNS: At 6 p.m. showed a temperature of 97.6, pulse 75, blood pressure 106/73, oxygen saturation 92 at room air. LUNGS: There is some rales in both sides and no wheezing. HEART: Audible and is somewhat irregular. ABDOMEN: Nontender. He told me that he does not want to go home and I asked him what he meant by that and he said that he doesn't want to go home to home and I asked how about the senior care and he said that he doesn't want to go there. I asked him whether he wants to go on home to the [facility] and he said yes. PROGNOSIS: Poor. This patient has senile dementia and went home from the senior care and has no constant caregiver. We will discuss this with his brother, Dustin. ELKE
--- NOTE | 2017-08-02 14:40 | PN ---
DATE OF VISIT: 07/23/2017 The patient is alert and responsive. He told me that he doesn't want to go home. I asked him in particular what does he mean by not going home to home. He said yes, not going home to home. I asked how about the [facility] and he said that he is not going there also. He would like to go home, home meaning to the [facility]. His brother had mentioned to me that he is getting tired. This conversation took place in the morning and I did see him again in the evening and the brother was present. I did discuss with Dustin with regards to his being a full code. I explained Jeffery, as well as Dustin about the full code. Given his general condition that if he ever comes back and if his heart would suddenly stop or he stops breathing, the best that he could be is where he is now, which he has already expressing being frustrated. Dustin agreed since the nurse also had told them that he should never be in a full code. I asked who is the POA and he said that his younger brother, Theresa, is the one that is in charge with his properties. I wanted to know who is the Power of Helicopter Repairer for Healthcare. I told them to make some discussion with that. Mr. Dustin Nix is the one that is always helping him and brings him to the office. VITAL SIGNS: Today at 5:06 p.m. showed a temperature of 97.6, pulse 68, blood pressure 110/67, oxygen saturation 98 at room air. Respiratory rate 18. LUNGS: His lungs has still some rales, but less than on admission. CBC today showed a WBC of 11,400, hemoglobin and hematocrit slightly below normal. AST and ALT elevated, but slightly less. CKMB was still elevated yesterday, as well as the Troponin. I had asked for a consultation from Dr. Patricio, Jig Filler with regards to these findings. CONDITION: Stable and maybe slightly improved from admission. PROGNOSIS: Poor. MTDD
--- NOTE | 2017-08-02 14:49 | PN ---
DATE OF VISIT: 07/25/17 The patient early this morning was well according to the nurses and had no problems and no shortness of breath. The patient after eating, however, developed respiratory distress with oxygen saturation dropping down to 83. BNP was elevated at 2,571. This patient was then given IV Lasix. The patient also was placed on 3 liters of oxygen and the oxygen saturation did rise to 91. Review of the records of this patient did have dysphagia studies showing some abnormalities. I do believe that this patient probably had aspirated causing the admission to the hospital. He had not been eating at home very well and also at the jail. He also refuses to have physical therapy while at the jail. He more or less demanded from his brothers that he wanted to go home. The patient was arousable, but just closes his eyes. LUNGS: The lungs has rales in both lung collins. This patient probably has had aspiration this morning. VITAL SIGNS: At 6 p.m. showed temperature of 97, pulse 70, blood pressure 120/ 70, respiratory rate 20, oxygen saturation 92 at 40% Venturi. The patient had been breathing through his mouth. The patient is given a thickened liquid if he desires to eat, otherwise he will be maintained on fluid. I had asked for a consultation from Dr. Patricio, who had seen him also initially on admission because of the elevated CKMB, plus Troponin. SHANELLED
--- NOTE | 2017-08-02 14:54 | PN ---
DATE OF VISIT: 07/26/17 The patient again is arousable, but he closes his eyes most of the time. His oxygen saturation has improved to 96 with a 40% Venti mask. The patient has some gurgling sounds and I asked the nurses to do some nasal tracheal suction. He still has rales on both lung collins. This patient is given Solu-Cortef. The patient was seen by Dr. Patricio and did an echocardiogram showing no significant changes from the previous. CONDITION: Stable, but not improved. PROGNOSIS: Still very poor. Blood cultures are still negative. The patient refused to eat. MTDD
--- NOTE | 2017-08-02 15:02 | PN ---
DATE OF VISIT: 07/27/17 The patient is alert and responsive. He did consume 75% of his meal at lunch. VITAL SIGNS: Temperature this afternoon at 1:50 p.m. showed a temperature of 97 , pulse 102, blood pressure 145/87, respiratory rate 16, oxygen saturation 98 at 4 liters. CBC 10,750, hemoglobin and hematocrit essentially the same as admission. Electrolytes slightly abnormal, but not clinically significant. AST and ALT is down further from where it was. AST now is 50, ALT 248. Total protein and albumin are below normal. His serum testosterone was 30 and the patient was given 200 mg of Testosterone yesterday IM. The hepatitis panel showed a negative for hepatitis A and B, as well as C. The reason for the elevated AST and ALT at this time is not very clear. MTDD
--- NOTE | 2017-08-02 15:36 | PN ---
DATE OF VISIT: 07/23/2017 The patient is alert and was conversant. He is not dyspneic, nor tachypneic. HEART: Audible with good tones. ABDOMEN: Nontender. VITAL SIGNS: Today at 5:06 p.m showed a temperature 97.6, pulse 68, blood pressure 110/67. Respiratory rate 18, oxygen saturation 98 at 2 liters. The patient at the time of my examination was not using any nasal oxygen. Serum testosterone level was requested and if the total testosterone is low, that this patient will be given testosterone. His previous testosterone level was very low. This may help him with his depression. He did 100% of his meals today, which is an improvement. This patient may need to stay in the prison all of the time now, but does sign out from the prison. This patient 's status was a full code and I talked to Dustin about that . I tried to understand their position with regards to the resuscitation status. ELKE
== END 2017-07-31 15:15 | disposition expired | DRG 177 ==
LOC: ED 20:55 → MEDSURG B 23:17
PROVIDERS: ADMIT General Practice; ATTEND General Practice
DX: J69.0 Pneumonitis due to inhalation of food and vomit (principal); J96.01 Acute respiratory failure with hypoxia; J91.8 Pleural effusion in other conditions classified elsewhere; F05 Delirium due to known physiological condition; E46 Unspecified protein-calorie malnutrition; R13.10 Dysphagia, unspecified; R79.89 Other specified abnormal findings of blood chemistry; I34.1 Nonrheumatic mitral (valve) prolapse; I07.1 Rheumatic tricuspid insufficiency; E77.8 Other disorders of glycoprotein metabolism; I49.9 Cardiac arrhythmia, unspecified; I48.91 Unspecified atrial fibrillation; K75.9 Inflammatory liver disease, unspecified; K74.60 Unspecified cirrhosis of liver; E29.1 Testicular hypofunction; E86.0 Dehydration; R53.1 Weakness; Z79.899 Other long term (current) drug therapy
CPT/HCPCS: 36415; 80053; 80061; 80074; 81001; 82140; 82550; 82553; 82803; 83880; 84403; 84439; 84443; 84484; 85025; 85610; 85730; 87040; 87493; 87804; 93005; 93010; 94640; 96361; 96365; 99284